=== PATIENT | male | born 1940 | race Caucasian/White ===

== ENCOUNTER → 2016-07-06 | Outpatient (CLI) | payer MEDICARE, OTHER ==
--- NOTE | 2016-07-06 17:41 | US ---
EXAMINATION TYPE: US venous doppler duplex LE LT DATE OF EXAM: 07/06/2016 5:20 PM COMPARISON: NONE CLINICAL HISTORY: I80.9 phlebitis,I82.4Z2 acute embolism. Left leg pain and swelling SIDE PERFORMED: Left VESSELS IMAGED: External Iliac Vein (EIV) Common Femoral Vein Deep Femoral Vein Greater Saphenous Vein * Femoral Vein Popliteal Vein Small Saphenous Vein * Proximal Calf Veins (* superficial vessels) TECHNOLOGIST IMPRESSION: wnl Left Leg: No evidence of DVT No popliteal fossa lesion was seen. IMPRESSION: THIS EXAMINATION IS NEGATIVE FOR DVT WITHIN THE LEFT LEG.
== END | disposition home or self-care (01) ==
LOC: RADUSMAIN 16:41
PROVIDERS: ATTEND Physical Medicine & Rehabilitation
DX: I82.4Z2 Acute embolism and thrombosis of unspecified deep veins of left distal lower extremity (principal); I80.9 Phlebitis and thrombophlebitis of unspecified site; M54.5 Low back pain; M54.2 Cervicalgia; R20.2 Paresthesia of skin

== ENCOUNTER → 2016-09-27 | Outpatient (CLI) | payer MEDICARE, OTHER ==
[2016-09-27 08:05] LABS: CH 33.9; CHCM 34.3; HCT 43.7 % (39.0-53.0); HDW 2.67; HGB 14.6 gm/dL (13.0-17.5); MCH 33.2 pg (25.0-35.0); MCHC 33.4 g/dL (31.0-37.0); MCV 99.4 fL (80.0-100.0); Mean Platelet Volume 7.4; RBC 4.39 m/uL (4.30-5.90); RDW 13.8 % (11.5-15.5); WBC 4.3 k/uL (3.8-10.6)
[2016-09-27 08:21] LABS: ALT 33 U/L (21-72); AST 22 U/L (17-59); Alkaline Phosphatase 103 U/L (38-126); Anion Gap 8 mmol/L; Blood Urea Nitrogen 29 mg/dL (9-20); Calcium 9.2 mg/dL (8.4-10.2); Carbon Dioxide 31 mmol/L (22-30); Chloride 104 mmol/L (98-107); Cholesterol 150 mg/dL (<200); Glucose 101 mg/dL (74-99); HDL Cholesterol 49 mg/dL (40-60); Non-African American GFR(MDRD) >60 (>60 ml/min/1.73 sqM); Potassium 4.1 mmol/L (3.5-5.1); Sodium 143 mmol/L (137-145); Total Bilirubin 0.9 mg/dL (0.2-1.3); Total Protein 7.7 g/dL (6.3-8.2); Triglycerides 57 mg/dL (<150)
== END | disposition home or self-care (01) ==
LOC: LABWHC1 07:22
PROVIDERS: ATTEND Internal Medicine Clinical Cardiac Electrophysiology
DX: I48.91 Unspecified atrial fibrillation (principal); I49.5 Sick sinus syndrome; E78.5 Hyperlipidemia, unspecified; R53.83 Other fatigue
CPT/HCPCS: 36415; 80053; 80061; 84443; 85027; 86618

== ENCOUNTER → 2016-11-30 | Outpatient (CLI) | payer MEDICARE, OTHER ==
--- NOTE | 2016-11-30 17:19 | US ---
EXAMINATION TYPE: US extremity nonvascular ltd LT DATE OF EXAM: 11/30/2016 COMPARISON: US 2017 CLINICAL HISTORY: L Knee Synovial Cyst M71.22; patient stated had large amount of fluid aspirated fro m lateral left knee last week Left popliteal fossa: no cyst is seen; no fluid is noted at lateral or medial left knee. IMPRESSION: NO POPLITEAL FOSSA CYST IS IDENTIFIED.
== END | disposition home or self-care (01) ==
LOC: RADUSWWP 15:01
PROVIDERS: ATTEND Family Medicine
DX: M71.22 Synovial cyst of popliteal space [Baker], left knee (principal)

== ENCOUNTER → 2017-07-14 | Outpatient (CLI) | payer MEDICARE, OTHER ==
[2017-07-14 15:13] LABS: HCT 40.3 % (39.0-53.0); HGB 13.7 gm/dL (13.0-17.5); MCH 32.8 pg (25.0-35.0); MCV 96.4 fL (80.0-100.0); Mean Platelet Volume 7.9; Platelet Count 198 k/uL (150-450); RBC 4.19 m/uL (4.30-5.90); RDW 12.8 % (11.5-15.5); WBC 5.3 k/uL (3.8-10.6)
[2017-07-14 15:23] LABS: Anion Gap 11 mmol/L; Blood Urea Nitrogen 27 mg/dL (9-20); Calcium 9.2 mg/dL (8.4-10.2); Carbon Dioxide 29 mmol/L (22-30); Chloride 102 mmol/L (98-107); Glucose 105 mg/dL (74-99); Potassium 3.8 mmol/L (3.5-5.1); Sodium 142 mmol/L (137-145)
== END | disposition home or self-care (01) ==
LOC: LABWHC1 14:51
PROVIDERS: ATTEND Internal Medicine Clinical Cardiac Electrophysiology
DX: I49.5 Sick sinus syndrome (principal); I44.7 Left bundle-branch block, unspecified; I42.0 Dilated cardiomyopathy
CPT/HCPCS: 36415; 80048; 85027

== ENCOUNTER 2017-07-25 07:28 | Day surgery (SDC) | payer MEDICARE, OTHER ==
[2017-07-17 11:04] VITALS: BMI 27.6
[~2017-07-25 07:28] MED LIST: LACTATED RINGERS 1,000 ML IV SCH; SODIUM CHLORIDE 0.9% 1,000 ML IV SCH
[2017-07-25] MEDS ORDERED: VANCOMYCIN 1,000 MG in SODIUM CHLORIDE 0.9% IRRIGATIO 1,000 ML IRRIGATION ONE (08:00)
[2017-07-25] MEDS ORDERED: VANCOMYCIN 2,000 MG in SODIUM CHLORIDE 0.9% 500 ML IVPB ONE (08:00)
[2017-07-25] MEDS ORDERED: VANCOMYCIN 1,000 MG VIAL IVPB ONE (08:21)
[2017-07-25] MEDS ORDERED: fentaNYL (PF) 50 MCG/ML 2 ML AMP ONE (11:57)
[2017-07-25] MEDS ORDERED: hydrALAZINE HCL 20 MG/ML 1 ML VIAL ONE (11:57)
[2017-07-25] MEDS ORDERED: IV FLUID CONTINUATION 1,000 ML IV ONE (11:57)
[2017-07-25] MEDS ORDERED: PROPOFOL 10 MG/ML 20 ML VIAL IV ONE (11:57)
[2017-07-25] MEDS ORDERED: MIDAZOLAM 2 MG/2 ML VIAL ONE (11:57)
[2017-07-25] MEDS ORDERED: GENTAMICIN 220 MG in SODIUM CHLORIDE 0.9% 100 ML IV STA (11:59)
[2017-07-25] MEDS ORDERED: IOHEXOL 350 MG/ML 50ML BOTTLE INJ ONE (12:20)
[2017-07-25] MEDS ORDERED: LIDOCAINE 2% INJ 20 MG/ML SQ ONE ×2 (12:40→14:00)
[2017-07-25] MEDS ORDERED: LIDOCAINE 1% INJ 10MG/ML (20 ML MDV) SQ ONE ×2 (13:50→14:01)
--- NOTE | 2017-07-25 15:29 | P.PCN ---
Preoperative Diagnosis: Diagnostic EP study Patient has a history of sick sinus syndrome and abnormal AV node function. He is symptomatic sick sinus syndrome requiring permanent pacemaker He brought in for diagnostic EP study to assess his AV node function to make a decision regarding a dual-chamber pacemaker versus a dual-chamber biventricular pacemaker After receiving IV antibiotics, vancomycin 2 g, venous sheaths were placed in the right femoral vein. Via these diagnostic catheters and the high right atrium and His bundle area and RV were placed Sinus cycle length 769 ms, AZ interval 180 ms, QRS 159 ms, QT interval 438 ms. AH 88 ms, HV 58 ms Atrial pacing and ventricular pacing was performed AV node Wenckebach block 430 ms VA Wenckebach block 310 ms No slow pathway conduction no delta waves Procedures performed in a fully awake state Plan Dual-chamber pacemaker implant with programming to minimize ventricular pacing
[2017-07-25] MEDS ORDERED: HYDROcodone/APAP 5-325MG 1 EACH TAB PO PRN (15:35)
[2017-07-25] MEDS ORDERED: ACETAMINOPHEN TAB 325 MG TAB PO PRN (15:35)
--- NOTE | 2017-07-25 16:28 | PCN ---
PROCEDURE NOTE PROCEDURE: Dual-chamber pacemaker implantation. INDICATION FOR PROCEDURE: Symptomatic sick sinus syndrome. PROCEDURE DESCRIPTION: The patient was brought to the EP lab in a fasting state. Written informed consent was obtained prior to the procedure. The patient already had a diagnostic EP study performed to assess AV node function. A dual-chamber pacemaker was recommended. The left pectoral area was prepped and draped as per protocol. Lidocaine 1% was used for local anesthesia. IV antibiotics were administered. A 4 cm incision was made parallel to the deltopectoral groove, about 1.5 cm medial to it. The incision was carried down to the level of the pectoralis muscle. A subfascial pocket was made. Hemostasis was assured. The left axillary vein was accessed at 2 points under fluoroscopy and via appropriately-sized introducer sheaths, 2 leads were positioned in the right heart. Multiple leads were used for the atrium as well as for the right ventricle. Initially the right ventricular lead was implanted and the thresholds and sensing were excellent. However, after some time the sensing decreased and there appeared to be micro dislodgement while the patient was snoring. Therefore the lead was repositioned multiple times, but because of suboptimal sensing, this was extracted and a tined, pacer lead was placed. The thresholds were excellent. The final lead in the right ventricle was a [employer] model number 1948, 58 cm length and serial number [id number]. R-waves 8.5 mV, pacing impedance 640 ohms, pacing threshold 0.3 V at 0.5 milliseconds, threshold 0.3 V at 0.5 milliseconds. Ten-volt test was negative. The atrial lead was an IsoFlex model number 1944, 46 cm length and serial number [id number]. P-waves 3.6 mitral valve, pacing impedance 349 ohms, pacing threshold 0.5 V at 0.5 milliseconds. Ten-volt test was negative. The patient had a very small atrial appendage post mitral valve surgery. Multiple leads had to be positioned, including a tined lead, straight screw-in lead, and a J- curved screw-in lead. Most times the leads were screwed in in stable position, but with snoring the lead would dislodge. Finally the J-curved screw-in lead was positioned in the right atrial appendage stump and excellent thresholds and sensing were obtained. The leads were then secured to the underlying pectoralis fascia using 2 non-absorbable sutures. Pocket was irrigated with antibiotic solution. Leads were connected to the generator ([employer] [id number], serial number [id number]). Leads and the generator were then placed in the subfascial pocket. The wound was closed in 3 layers and dressed per protocol. RESULT: 1. Successful dual-chamber pacemaker implantation. 2. Long procedure requiring exchange of multiple leads both for the atrium as well as for the right ventricle the procedure. PLAN: IV antibiotics. REJI / NIKHILN: [id number] /
[2017-07-25] MEDS ORDERED: ACETAMINOPHEN IV (For NPO) 1,000 MG in EMPTY BAG 1 BAG IVPB ONE (18:15)
[2017-07-25] MEDS: CARVEDILOL 3.125 MG TAB PO SCH (18:47)
[2017-07-25] MEDS ORDERED: VANCOMYCIN 2,000 MG in SODIUM CHLORIDE 0.9% 500 ML IVPB SCH (23:00)
[2017-07-25 23:55] VITALS: RESP 16
--- NOTE | 2017-07-26 07:16 | XR ---
EXAMINATION TYPE: XR chest 2V DATE OF EXAM: 07/26/2017 COMPARISON: 08/13/2015 TECHNIQUE: PA and lateral views submitted. HISTORY: Lead placement check FINDINGS: The lungs are clear and there is no pneumothorax, pleural effusion, or focal pneumonia. Double lead pacemaker seen the proximal lead overlying the right atrium and distal lead overlying the right vent ricle. Postsurgical changes are noted. Hypertrophic change of the spine. IMPRESSION: 1. No postprocedural complication..
--- NOTE | 2017-07-26 08:09 | P.DS ---
Providers Attending physician: Kvng Haynes Primary care physician: [facility] Course: Patient is doing well this morning. No chest discomfort dizziness lightheadedness or palpitations. His pacer site is healing well there is no hematoma. Mild tenderness and mild pain is noted. Vitals are stable afebrile 98.2F respirations normal patient looks comfortable lying in bed no orthopnea. Pulse rate in the 50s and 60s blood pressure 135/ 96. His mercury, 127/58 mmHg. 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 Tinoco in 3 months Carvedilol 3.125 mg by mouth twice daily added to the regimen for management of a mildly dilated left ventricle and left ventricular systolic function which is borderline Patient Condition at Discharge: Stable Plan - Discharge Summary Discharge Rx Participant: No New Discharge Prescriptions: New RX: Carvedilol [Coreg] 3.125 mg PO BID #90 tablet No Action Terazosin [Hytrin] 5 mg PO DAILY Naproxen Sodium [Aleve] 220 mg PO DAILY Lisinopril [Zestril] 2.5 mg PO DAILY RX: Famotidine 40 mg PO DAILY Cholecalciferol (Vitamin D3) [Vitamin D3] 2,000 unit PO DAILY Discharge Medication List Cholecalciferol (Vitamin D3) [Vitamin D3] 2,000 unit PO DAILY 07/17/17 [History] Lisinopril [Zestril] 2.5 mg PO DAILY 07/17/17 [History] Naproxen Sodium [Aleve] 220 mg PO DAILY 07/17/17 [History] RX: Famotidine 40 mg PO DAILY 07/17/17 [History] Terazosin [Hytrin] 5 mg PO DAILY 07/17/17 [History] RX: Carvedilol [Coreg] 3.125 mg PO BID #90 tablet 07/25/17 [Rx] Follow up Appointment(s)/Referral(s): Kvng Haynes MD [STAFF PHYSICIAN] - 6 Weeks Herman Pearce MD [Primary Care Provider] - 3 Weeks Activity/Diet/Wound Care/Special Instructions: PATIENT EDUCATION MATERIAL Instructions following a heart rhythm device implant. 1. Keep dressing DRY for 5 DAYS. You may cover the area with Saran or Cling Wrap, prior to a shower. 2. The dressing will be removed in the Device Clinic @ [facility]. Absorbable sutures were used to close the wound. 3. Avoid raising the [left] arm above the shoulder level. [4 week restriction] 4. Avoid arm movements, like backscratching, rubbing the head, or pulling on a cord. (4 weeks restriction) 5. Gentle range of motion movements of the shoulder, closest to the incision should be performed to avoid a frozen shoulder. (Pendulum exercises of the shoulder) 6. The opposite arm may be used freely. 7. Avoid driving for 7 days. 8. Avoid activities such as golfing, swimming, weed whacking, lifting more than 10 pounds weight, bowling, gymnastics and weight training/lifting. (6 weeks restriction) 9. Activities such as wood chopping with an axe, pull-ups in the gymnasium, power lifting, arc-welding, being close to home induction cooktops will always be a problem. 10. Arm sling is a mere reminder not to raise the arm above the head. However you do not need to keep the arm completely immobilized. Your free to move the arm and use it and for normal activities. In case of any problems, please call [facility], [place], @ [phone], Attention: Device Clinic
[2017-07-26] MEDS ORDERED: VANCOMYCIN 1,000 MG in SODIUM CHLORIDE 0.9% 250 ML IVPB STA (08:10)
[2017-07-26] MEDS: CARVEDILOL 3.125 MG TAB PO SCH (08:42)
[2017-07-26] MEDS ORDERED: FAMOTIDINE 20 MG TAB PO SCH (09:00)
[2017-07-26] MEDS ORDERED: DOXAZOSIN 4 MG TAB PO SCH (09:00)
[2017-07-26] MEDS ORDERED: LISINOPRIL 2.5 MG TAB PO SCH (09:00)
[2017-07-26 11:32] VITALS: BP 131/65; PULSE 57; TEMP 98.1
== END 2017-07-26 14:52 | disposition home or self-care (01) ==
LOC: CATHEP 07:28 → 3OBS 17:33 → CATHEP 07-26 14:52
PROVIDERS: ATTEND Internal Medicine Clinical Cardiac Electrophysiology
DX: I49.5 Sick sinus syndrome (principal); I44.0 Atrioventricular block, first degree; I44.7 Left bundle-branch block, unspecified; Z98.890 Other specified postprocedural states; Z86.79 Personal history of other diseases of the circulatory system; Z87.891 Personal history of nicotine dependence; Z79.1 Long term (current) use of non-steroidal anti-inflammatories (NSAID); Z79.899 Other long term (current) drug therapy; Z88.1 Allergy status to other antibiotic agents; Z88.0 Allergy status to penicillin
CPT/HCPCS: 93620; 33208; 71046; C1894; C1769 ×3; C1730 ×2; C1892; C1898 ×3; C1785; J2001 ×2; J3370 ×2; J1580; Q9967

== ENCOUNTER → 2017-11-08 | Outpatient (CLI) | payer MEDICARE, OTHER ==
--- NOTE | 2017-11-08 13:18 | US ---
EXAMINATION TYPE: US venous doppler duplex UE LT DATE OF EXAM: 11/08/2017 COMPARISON: NONE CLINICAL HISTORY: R22.32 SWELLING,MASS AND LUMP LT UPPER LIMB. Wasp sting 5 weeks ago and now swollen left arm, no h/o dvt SIDE PERFORMED: Left Left Arm: Internal echoes seen in upper brachial veins, axillary vein, subclavian vein, cephalic vein at the junction and starting within IJV and these vessels lack compressibility. Basilic vein in uppe r arm had rouleaux flow and was compressible but very limited flow detected. *impression given to Dr Pearce at office @ 1100 IMPRESSION: 1. Left upper extremity venous ultrasound suggestive for partial deep venous thrombosis without obstr uction as well as some superficial thrombophlebitis.
== END | disposition home or self-care (01) ==
LOC: RADUSWWP 10:19
PROVIDERS: ATTEND Family Medicine
DX: I80.8 Phlebitis and thrombophlebitis of other sites (principal)

== ENCOUNTER → 2017-11-16 | Outpatient (CLI) | payer MEDICARE, OTHER ==
--- NOTE | 2017-11-17 07:14 | US ---
EXAMINATION TYPE: US carotid duplex BILAT DATE OF EXAM: 11/16/2017 COMPARISON: US 2011 CLINICAL HISTORY: G45.9 Transient cerebral ischemic attack, unspecif; transient vision loss lower anna f left eye; on blood thinner for DVT left arm EXAM MEASUREMENTS: RIGHT: Peak Systolic Velocity (PSV) cm/sec ----- Right CCA: 68.7 ----- Right ICA: 85.5 ----- Right ECA: 104.4 ICA/CCA ratio: 1.2 RIGHT: End Diastole cm/sec ----- Right CCA: 16.7 ----- Right ICA: 29.3 ----- Right ECA: 18.9 LEFT: Peak Systolic Velocity (PSV) cm/sec ----- Left CCA: 84.1 ----- Left ICA: 82.9 ----- Left ECA: 99.3 ICA/CCA ratio: 1.0 LEFT: End Diastole cm/sec ----- Left CCA: 19.7 ----- Left ICA: 18.4 ----- Left ECA: 17.2 VERTEBRALS (direction of flow): Right Vertebral: Antegrade Left Vertebral: Antegrade Rhythm: Normal Irregular, mild intimal wall changes are seen at bilateral carotid bifurcation, but PSV is wnl bilat erally. IMPRESSION: Mild degree of grayscale atheromatous plaquing with no sonographically evident hemodynam ically significant stenosis within either visualized carotid arterial system.
== END | disposition home or self-care (01) ==
LOC: RADUSWWP 15:42
PROVIDERS: ATTEND Family Medicine
DX: I65.23 Occlusion and stenosis of bilateral carotid arteries (principal)
CPT/HCPCS: 93880

== ENCOUNTER 2018-05-31 10:17 | Day surgery (SDC) | payer MEDICARE, OTHER ==
[2018-05-30 12:42] VITALS: BMI 26.5
[~2018-05-31 10:17] MED LIST changes: -LACTATED RINGERS 1,000 ML IV SCH
[2018-05-31 10:52] VITALS: TEMP 98.2
[2018-05-31] MEDS ORDERED: PROPOFOL 10 MG/ML 20 ML VIAL IV ONE (11:20)
[2018-05-31] MEDS ORDERED: FLECAINIDE 50 MG TAB PO STA ×2 (11:29→11:51)
--- NOTE | 2018-05-31 11:33 | P.PCN ---
Preoperative Diagnosis: Diagnosis Symptomatic atrial fibrillation/atrial tachycardia Procedure Electrical cardioversion after 3 doses of flecainide 50 g twice daily Procedure details Successful electrical cardioversion for persistent atrial fibrillation/atrial tachycardia 200 J biphasic shock was successfully Final rhythm atrial paced rhythm at 50 beats a minute Plan Continue flecainide 50 mg twice daily continue ELIQUIS continue other cardiac medications and follow-up in about 6 weeks Follow-up would want to prior to that Anesthesia: MAC Condition: stable Disposition: same day
[2018-05-31 14:00] VITALS: BP 102/72; PULSE 62; RESP 16
== END 2018-05-31 13:00 | disposition home or self-care (01) ==
LOC: CATHCVL 10:17
PROVIDERS: ATTEND Internal Medicine Clinical Cardiac Electrophysiology
DX: I48.1 Persistent atrial fibrillation (principal); I47.1 Supraventricular tachycardia; I42.9 Cardiomyopathy, unspecified; I44.0 Atrioventricular block, first degree; I44.7 Left bundle-branch block, unspecified; K21.9 Gastro-esophageal reflux disease without esophagitis; Z72.0 Tobacco use; Z79.02 Long term (current) use of antithrombotics/antiplatelets; Z79.899 Other long term (current) drug therapy; Z79.1 Long term (current) use of non-steroidal anti-inflammatories (NSAID); Z88.1 Allergy status to other antibiotic agents; Z79.01 Long term (current) use of anticoagulants; Z95.0 Presence of cardiac pacemaker; Z88.0 Allergy status to penicillin; Z91.013 Allergy to seafood
CPT/HCPCS: 92960; J2704

== ENCOUNTER 2018-11-23 11:44 | Day surgery (SDC) | payer MEDICARE, OTHER ==
[2018-11-20 10:12] VITALS: BMI 26.5
[~2018-11-23 11:44] MED LIST changes: +DEXAMETHASONE SOD PHOSPHATE 10 MG/ML 1 ML VIAL IV ONE; +LACTATED RINGERS 1,000 ML IV SCH; +LIDOCAINE 1% 20 ML VIAL (10MG/ML) FOR IV START INTRADERMA PRN; +MIDAZOLAM 2 MG/2 ML VIAL IV PRN; +ONDANSETRON 4 MG/2 ML VIAL IVP ONE; +Pre Op ABX Message 1 EACH MISC MISCELLANE ONE; -SODIUM CHLORIDE 0.9% 1,000 ML IV SCH
[2018-11-23] MEDS ORDERED: ceFAZolin IN SWFI 2 GM/20 ML SYRINGE IVP STA (13:44)
[2018-11-23] MEDS ORDERED: NEOSTIGMINE 1 MG/ML 10 ML VIAL ONE (14:03)
[2018-11-23] MEDS ORDERED: SUCCINYLCHOLINE CHLORIDE 100 MG/5 ML SYR IV ONE (14:03)
[2018-11-23] MEDS ORDERED: ROCURONIUM BROMIDE 10 MG/ML 10 ML VIAL IV ONE (14:03)
[2018-11-23] MEDS ORDERED: GLYCOPYRROLATE 0.2 MG/ML 2 ML VIAL ONE (14:03)
[2018-11-23] MEDS ORDERED: PROPOFOL 10 MG/ML 20 ML VIAL IV ONE (14:03)
[2018-11-23] MEDS ORDERED: MIDAZOLAM 2 MG/2 ML VIAL ONE (14:03)
[2018-11-23] MEDS ORDERED: LIDOCAINE 1% INJ 10MG/ML (20 ML MDV) ONE (14:03)
[2018-11-23] MEDS ORDERED: ROPIVACAINE 5 MG/ML 30 ML VIAL ONE (14:03)
[2018-11-23] MEDS ORDERED: DEXAMETHASONE SOD PHOSPHATE 4 MG/ML 1 ML VIAL ONE (14:03)
[2018-11-23] MEDS ORDERED: fentaNYL (PF) 50 MCG/ML 2 ML AMP ONE (14:03)
[2018-11-23] MEDS ORDERED: LACTATED RINGERS 1,000 ML IV ONE (15:31)
[2018-11-23 16:05] VITALS: TEMP 97.8
[2018-11-23 16:35] VITALS: RESP 16
[2018-11-23 17:04] VITALS: BP 151/66; PULSE 52
--- NOTE | 2018-11-24 10:38 | P.OP ---
Date of Procedure: 11/23/18 Procedure(s) Performed: PREOPERATIVE DIAGNOSES: 1. Right shoulder large retracted rotator cuff tear. 2. Chronic impingement syndrome. 3. Acromioclavicular osteoarthritis. 4. Superior labral degenerative tear 5. Long head biceps tendinopathy. POSTOPERATIVE DIAGNOSES: 1. Right shoulder large retracted rotator cuff tear (supraspinatus and infraspinatus, 4 cm, retracted past glenoid with poor quality tissue and poor posterior leaflet mobility). 2. Chronic impingement syndrome with cuff arthropathy 3. Acromioclavicular osteoarthritis. 4. Labral degenerative tear. 5. Long head biceps complete rupture 5. Moderate to severe adhesive capsulitis PROCEDURES PERFORMED: 1. Right shoulder arthroscopy with rotator cuff repair (margin convergene partial repair) 2. Arthroscopic partial distal clavicle excision 3. Arthroscopic lysis of adhesions with capsular release and manipulation under anesthesia 4. Arthroscopic subacromial decompression 5. Arthroscopic debridement superior labral tear ANESTHESIA: General. ESTIMATED BLOOD LOSS: Less than 25 mL TOURNIQUET: None CHANNEL PROCESS PLANT OPERATOR: Mattie Irvin PA-C (assistance with: Positioning, retraction, camera operation, repair, closure, dressing) COMPLICATIONS: None. DISPOSITION: To postanesthesia care unit INDICATIONS: Mr. Domingo is a 78 year old male with a history of large rotator cuff tear. MRI was suspicious for a tear with retraction and cuff arthropathy, and the patient does not wish to have a reverse total shoulder replacement, which I feel would be the most definitive procedure for him however would involve lifestyle restrictions which he is not comfortable with. He understands the difficulties associated with repair of a retracted rotator cuff tear and understands that there is the possibility of being unable to fully repair the tear. I have examined the patient in the office and proposed rotator cuff repair via an arthroscopic or mini-open approach, as well as other procedures to optimize the shoulder and outcome, such as decompression/smoothing of spurs and debridement of loose or degenerated tissue. I have explained the risks of this surgery as being inclusive of, but not limited to: bleeding, infection, scarring, discomfort, blood vessel and/or nerve damage, need for further surgery, stiffness, persistence or worsening of problems, , and other risks. The consent form has been completed and signed. PROCEDURE: Appropriate consent was obtained from the patient. The patient was taken to the operating room and placed in the supine position. General anesthesia was initiated and after confirmation of adequate anesthesia, the patients right shoulder was examined. Initial range of motion showed flexion to 140 abduction to 140, external rotation to 30 and internal rotation to 30. Using Codman's paradox maneuver, the right shoulder was gently stretched and fi nal range of motion after the stretch was for flexion to 170, abduction to 170, external rotation to 75, and internal rotation to 60 with the arm at 90 abduction. The shoulder was stable. Next, the patient was rotated into the lateral decubitus position and stabilized to the table with a vallecillo bag and padded straps. Care was taken to make sure that all pressure points were adequately padded. Bear-hugger was used along with bilateral leg sequential compression devices. Prepping and draping was completed in the usual aseptic fashion using ChloraPrep. The patient received intravenous antibiotics prior to incision. The shoulder was suspended from traction with 10 lbs. of weight in a position of 45 degrees abduction. Landmarks were outlined with a skin marking pen. A spinal needle was inserted into the glenohumeral joint and fluid was administered to distend the joint. A posterior portal was created using an 11 blade and the arthroscopic canula, over a dull trocar, was carefully inserted into the joint. Arthroscopy then commenced. An anterior portal was inserted in the rotator interval area using inside-out technique. Biceps tendon showed complete rupture. Shaver was used to move the degenerated portion of the biceps within the joint. Severe labral degeneration was noted throughout the periphery of the glenoid. Moderate cartilage loss was noted throughout both the glenoid and humeral head sides. Large rotator cuff defect was noted from the subscapularis all the way to the extent of the infraspinatus. Teres minor attachment appeared to be relatively intact. The anterior undersurface of the acromion could clearly be seen through the rotator cuff defect. Minor debris and several small loose bodies were noted in the joint, which were removed using the shaver. Labrum showed circumferential degenerative changes without significant instability. Superior labrum was well attached. Negative peel back sign. Loose fibers of labrum in all areas were debrided away back to stable labrum. Synovitis was noted superior to the superior labrum and within the rotator interval. This was debrided and removed where the capsule appeared inflamed, using an arthroscopic shaver. Attention was then directed to the subacromial space. The camera and instruments were redirected into the subacromial space and bursoscopy was performed. The patients bursa was inflamed and thickened, indicating chronic bursitis. There also appear to be significant degenerative adhesions present within the lateral gutter anterior gutter and posterior gutter. These adhesions were lysed using a shaver and radiofrequency and attention was paid to meticulous hemostasis with the ArthroCare device. A lateral portal was created using outside-in technique. The rotator cuff tear was noted to be a broad U- shaped tear, with retraction past the level of the glenoid, with appeared to be a very deficient anterior and posterior leaflet. The posterior leaflet was poorly mobile, and therefore using a combination of angled elevator, shaver, and ArthroCare device, the adhesions between the inferior and superior surfaces of the posterior leaflet/conjoined tendon were released; however, this did not improve mobility very much. The anterior leaflet was composed of very deficient tissue, without a robust appearance. The posterior leaflet was in slightly better condition but still deficient. The loose fibers of the tear were debrided back to stable tissue and the defect in the tendon was repaired partially, see below. The undersurface of the acromion had frictional changes consistent with severe and chronic impingement syndrome. The underside of the acromion anteriorly was cleared of soft tissue using an arthroscopic radiofrequency ablator. Care was taken while using the ablator not to exceed 40 degrees Centigrade within the bursa. In order to avoid the possibility of anterior escape, the CA ligament was left intact and the undersurface of the acromion was smoothed using a flat jim. Minimal thickness of material was removed. The rotator cuff tear was then repaired as follows. Preparation of the supraspinatus and infraspinatus footprint was performed using hand rasps , jim, and shaver. This created a bleeding surface without significant decortication. 3 margin convergence sutures using #2 FiberWire were deployed into the medial portion of the rotator cuff and were tied down using alternating half hitches arthroscopically. This significantly reduced the volume of the tear. Next, the posterior leaflet was attempted to be repaired. The substance of the tendon was too deficient to hold a stitch. Addtionally, there was no significant remaining posterior leaflet mobilility without causing undue tension in the repair. Therefore, no anchor was needed and the repair was left as a partial repair using the margin convergence technique described above. Subsequently, 4-0 Monocryl was used to close the portal holes. Steri-strips were applied as well as sterile dressing. The shoulder was then placed into a sling and the patient was transferred to recovery room in stable condition. Sponge and needle counts were correct.
--- NOTE | 2018-11-26 11:51 | P.ANPRN ---
Procedure Note - Anesthesia - Nerve Block Performed Right Interscalene Single Time Out Performed: Yes Date of Procedure: 11/23/18 Procedure Start Time: 13:00 Procedure Stop Time: 13:04 Location of Patient Procedure: PreOp Indication: Acute Post-Operative Pain, Requested by physician Sedation Type: Sedate with meaningful contact maintained Preparation: Sterile Prep Position: Supine Needle Types: Pajunk Needle Gauge: 21 Technique: Ultrasound (Ropivacaine 0.5% 30 mL plus dexamethasone 4 Mg) Blood Aspirated: No Pain Paresthesia on Injection Noted: No Resistance on Injection: Normal Events: Uneventful and Well Tolerated
== END 2018-11-23 17:31 | disposition home or self-care (01) ==
LOC: OR 11:44
PROVIDERS: ATTEND Orthopaedic Surgery
DX: M75.101 Unspecified rotator cuff tear or rupture of right shoulder, not specified as traumatic (principal); M25.811 Other specified joint disorders, right shoulder; M19.011 Primary osteoarthritis, right shoulder; M24.811 Other specific joint derangements of right shoulder, not elsewhere classified; M75.01 Adhesive capsulitis of right shoulder; S46.111A Strain of muscle, fascia and tendon of long head of biceps, right arm, initial encounter; X58.XXXA Exposure to other specified factors, initial encounter; M65.811 Other synovitis and tenosynovitis, right shoulder; I10 Essential (primary) hypertension; I48.91 Unspecified atrial fibrillation; E78.5 Hyperlipidemia, unspecified; H91.90 Unspecified hearing loss, unspecified ear; Z87.891 Personal history of nicotine dependence; K21.9 Gastro-esophageal reflux disease without esophagitis; Z95.1 Presence of aortocoronary bypass graft; Z95.0 Presence of cardiac pacemaker; Z90.49 Acquired absence of other specified parts of digestive tract; Z79.01 Long term (current) use of anticoagulants; Z79.899 Other long term (current) drug therapy; Z88.1 Allergy status to other antibiotic agents; Z88.0 Allergy status to penicillin
CPT/HCPCS: 29827; 29826; 29824; 29823; 64415; C1894; J2250; J1100 ×2; J2710; J2405; J2001; J3010; J2795; J0330; J2704; J0690

== ENCOUNTER 2018-11-25 09:26 | Emergency (ER) | payer MEDICARE, OTHER ==
--- NOTE | 2018-11-25 10:47 | ED ---
Male Urogenital HPI - General Source: patient, family, RN notes reviewed Mode of arrival: wheelchair Limitations: no limitations <Omer Castillo - Last Filed: 11/25/18 11:46> <Km Bourne - Last Filed: 11/25/18 12:11> - General Chief complaint: Urogenital Stated complaint: URINE PROBLEM Time Seen by Provider: 11/25/18 09:47 - History of Present Illness Initial comments: 78-year-old male presented emergency Department with chief complaint of painful urination, lower abdominal pain and urinary leakage. Patient states this started after surgery on Monday. Patient states that he constantly has to go but only small amounts her out. Patient states she is at the point where she is constantly leaking. He states he feels like his prostate is swollen. He does have an enlarged prostate. Patient had no problems like this in the past. Denies fevers or chills denies any nausea vomiting. (Omer Castillo) - Related Data Home Medications Medication Instructions Recorded Confirmed Cholecalciferol (Vitamin D3) 2,000 unit PO DAILY 07/17/17 11/25/18 [Vitamin D3] Famotidine 40 mg PO QAM 07/17/17 11/25/18 Lisinopril [Zestril] 2.5 mg PO QAM 07/17/17 11/25/18 Naproxen Sodium [Aleve] 220 mg PO Q2D 07/17/17 11/25/18 Terazosin [Hytrin] 5 mg PO DAILY 07/17/17 11/25/18 Apixaban [Eliquis] 5 mg PO BID 05/30/18 11/25/18 Aspirin 81 mg PO DAILY 05/30/18 11/25/18 Atorvastatin [Lipitor] 20 mg PO Q2D 05/30/18 11/25/18 Carvedilol [Coreg] 6.25 mg PO BID 05/30/18 11/25/18 Flecainide [Tambocor] 25 mg PO Q12HR 05/31/18 11/25/18 Metoprolol Succinate (ER) [Toprol 25 mg PO QAM 11/20/18 11/25/18 Xl] Previous Rx's Medication Instructions Recorded HYDROcodone/APAP 5-325MG [[place] 1 - 2 each PO Q4-6H PRN #50 tab 11/23/18 5-325] Sennosides-Docusate Sodium 1 tab PO BID #60 tablet 11/23/18 [Senokot-S] Allergies Allergy/AdvReac Type Severity Reaction Status Date / Time clarithromycin [From Biaxin] Allergy Anaphylaxis Verified 11/25/18 09:44 clindamycin Allergy Anaphylaxis Verified 11/25/18 09:44 Penicillins Allergy Anaphylaxis Verified 11/25/18 09:44 shellfish derived [Crab] Allergy Anaphylaxis Verified 11/25/18 09:44 Review of Systems ROS Other: All systems not noted in ROS Statement are negative. <Omer Castillo - Last Filed: 11/25/18 11:46> ROS Other: All systems not noted in ROS Statement are negative. <Km Bourne - Last Filed: 11/25/18 12:11> ROS Statement: Those systems with pertinent positive or pertinent negative responses have been documented in the HPI. Past Medical History Past Medical History: Atrial Fibrillation, GERD/Reflux, Hypertension, Osteoarthritis (OA) Additional Past Medical History / Comment(s): 07-29-17 blood clot upper extremity and neck History of Any Multi-Drug Resistant Organisms: None Reported Past Surgical History: Cardiac Ablation, Cholecystectomy, Heart Catheterization, Hernia Repair, Pacemaker Additional Past Surgical History / Comment(s): lt shoulder surg, mitral valve repair in 2012. Past Anesthesia/Blood Transfusion Reactions: No Reported Reaction Additional Past Anesthesia/Blood Transfusion Reaction / Comment(s): no hx blood transfusion Type of Cardiac Device: Permanent Pacemaker Device Placement Date:: 07-25-17 [facility] Past Psychological History: No Psychological Hx Reported Smoking Status: Former smoker Past Alcohol Use History: Daily Past Drug Use History: None Reported - Past Family History Mother Family Medical History: Cancer Father Family Medical History: Cancer <Omer Castillo - Last Filed: 11/25/18 11:46> General Exam General appearance: alert, in no apparent distress Head exam: Present: atraumatic, normocephalic, normal inspection Respiratory exam: Present: normal lung sounds bilaterally. Absent: respiratory distress, wheezes, rales, rhonchi, stridor Cardiovascular Exam: Present: regular rate, normal rhythm, normal heart sounds. Absent: systolic murmur, diastolic murmur, rubs, gallop, clicks GI/Abdominal exam: Present: soft, distended, tenderness, normal bowel sounds. Absent: guarding, rebound, rigid Back exam: Absent: CVA tenderness (R), CVA tenderness (L) Neurological exam: Present: alert, oriented X3, CN II-XII intact Skin exam: Present: warm, dry, intact, normal color. Absent: rash <Omer Castillo - Last Filed: 11/25/18 11:46> Course <Km Bourne - Last Filed: 11/25/18 12:11> Vital Signs 11/25/18 09:40 Temperature 99.3 F Pulse Rate 82 Respiratory 24 Rate Blood Pressure 189/82 O2 Sat by Pulse 99 Oximetry - Reevaluation(s) Reevaluation #1: 11/25/18 12:11 PA supervision: I personally did evaluate this case including the complete workup and discussed with the PA. Patient will be discharged I do agree with the assessment and plan. (Km Bourne) Medical Decision Making <Omer Castillo - Last Filed: 11/25/18 11:46> - Medical Decision Making 78-year-old male presented for urinary retention. Patient fully place all symptoms are alleviate this time. Luciano catheter will be kept in place. Patient's urinalysis is clear of any signs of infection. (Omer Castillo) - Lab Data Lab Results 11/25/18 Range/Units 11:10 Urine Color Light Yellow Urine Appearance Clear (Clear) Urine pH 7.0 (5.0-8.0) Ur Specific [place] 1.011 (1.001-1.035) Urine Protein Negative (Negative) Urine Glucose (UA) Negative (Negative) Urine Ketones Negative (Negative) Urine Blood Negative (Negative) Urine Nitrite Negative (Negative) Urine Bilirubin Negative (Negative) Urine Urobilinogen <2.0 (<2.0) mg/dL Ur Leukocyte Esterase Negative (Negative) Disposition Is patient prescribed a controlled substance at d/c from ED?: No Time of Disposition: 11:47 <Omer Castillo - Last Filed: 11/25/18 11:46> <Km Bourne - Last Filed: 11/25/18 12:11> Clinical Impression: Urinary retention Disposition: HOME SELF-CARE Condition: Stable Instructions (If sedation given, give patient instructions): Urinary Retention in Men (ED) Additional Instructions: Please return to the Emergency Department if symptoms worsen or any other concerns. Referrals: Herman Pearce MD [Primary Care Provider] - 1-2 days Bertrand Combs MD [STAFF PHYSICIAN] - 1-2 days
[2018-11-25 10:48] LABS: Appearance,Urine Clear (Clear); Bilirubin,Urine Negative (Negative); Blood,Urine Negative (Negative); Color,Urine Light Yellow; Glucose,Urine (UA) Negative (Negative); Ketones,Urine Negative (Negative); Leukocyte Esterase,Urine Negative (Negative); Nitrite,Urine Negative (Negative); Protein,Urine Negative (Negative); Specific Gravity,Urine 1.011 (1.001-1.035); Urobilinogen,Urine <2.0 mg/dL (<2.0)
[2018-11-25 12:17] VITALS: BP 166/85; PULSE 61; RESP 18; TEMP 100.7
== END 2018-11-25 12:05 | disposition home or self-care (01) ==
LOC: EC 09:26
DX: R33.9 Retention of urine, unspecified (principal); R30.9 Painful micturition, unspecified; R10.30 Lower abdominal pain, unspecified; I48.91 Unspecified atrial fibrillation; K21.9 Gastro-esophageal reflux disease without esophagitis; I10 Essential (primary) hypertension; M19.90 Unspecified osteoarthritis, unspecified site; Z87.891 Personal history of nicotine dependence; Z79.01 Long term (current) use of anticoagulants; Z79.1 Long term (current) use of non-steroidal anti-inflammatories (NSAID); Z79.82 Long term (current) use of aspirin; Z79.899 Other long term (current) drug therapy; Z88.0 Allergy status to penicillin; Z88.1 Allergy status to other antibiotic agents; Z91.013 Allergy to seafood; Z95.0 Presence of cardiac pacemaker; Z95.818 Presence of other cardiac implants and grafts; Z90.49 Acquired absence of other specified parts of digestive tract
CPT/HCPCS: 51702; 51798; 81003; 99284

== ENCOUNTER 2018-11-29 03:51 | Emergency (ER) | payer MEDICARE, OTHER ==
[2018-11-29 04:33] LABS: Appearance,Urine Clear (Clear); Bilirubin,Urine Negative (Negative); Blood,Urine Moderate (Negative); Color,Urine Yellow; Glucose,Urine (UA) Negative (Negative); Ketones,Urine Negative (Negative); Leukocyte Esterase,Urine Negative (Negative); Mucus,Urine Rare /hpf; Nitrite,Urine Negative (Negative); PH, Urine 6.5 (5.0-8.0); Protein,Urine Trace (Negative); RBC,Urine 80 /hpf (0-5); Squamous Epithelial Cell,Urine <1 /hpf (0-4); Urobilinogen,Urine <2.0 mg/dL (<2.0); WBC,Urine 3 /hpf (0-5)
--- NOTE | 2018-11-29 04:58 | ED ---
General Adult HPI - General Chief complaint: Urogenital Stated complaint: Male Time Seen by Provider: 11/29/18 03:59 Source: patient, family Mode of arrival: ambulatory Limitations: no limitations - History of Present Illness Initial comments: Dictation was produced using [employer] dictation software. please excuse any grammatical, word or spelling errors. Chief Complaint: 78-year-old male past history of enlarged prostate presents with urinary retention. History of Present Illness: he is a 78-year-old male patient reports that he had his Luciano catheter removed earlier today by his primary care physician. Past medical history of enlarged prostate. Patient states that he had urinary retention after shoulder surgery done last week. Reports that he had difficulty urinating after the surgery. On Monday taken to the emergency department had Luciano catheter placed. Luciano catheter remain in place for approximately 2-3 days. Today he went to his primary care physician's office and had the Luciano catheter removed. Since having the Luciano catheter removed patient has been having difficulty urinating. Patient complains of some mild suprapubic discomfort. The ROS documented in this emergency department record has been reviewed and confirmed by me. Those systems with pertinent positive or negative responses have been documented in the HPI. All other systems are other negative and/or noncontributory. PHYSICAL EXAM: General Impression: Alert and oriented x3, not in acute distress HEENT: Normocephalic atraumatic, extra-ocular movements intact, pupils equal and reactive to light bilaterally, mucous membranes moist. Cardiovascular: Heart regular rate and rhythm, S1&S2 audible, no murmurs, rubs or gallops Chest: Lungs clear to auscultation bilaterally, no rhonchi, no wheeze, no rales Abdomen: Mild tenderness in suprapubic area, palpable bladder Musculoskeletal: Pulses present and equal in all extremities, no peripheral edema Motor: no focal deficits noted Neurological: CN II-XII grossly intact, no focal motor or sensory deficits noted Skin: Intact with no visualized rashes Psych: Normal affect and mood ED course: 78-year-old male presents with urinary retention. He has past medical history of enlarged prostate. Arrival are within acceptable limits. Bladder scan was performed with greater than 400 mL of urine. Luciano catheter was placed by nursing staff with output of 1200 mL. Patient reports immediate relief. Urine sent for urinalysis and culture. Patient has outpatient referral to urologist. He is advised to follow-up with urologist for outpatient management of urinary retention and Luciano catheter. Return parameters discussed. Patient clear for discharge. - Related Data Home Medications Medication Instructions Recorded Confirmed Cholecalciferol (Vitamin D3) 2,000 unit PO DAILY 07/17/17 11/25/18 [Vitamin D3] Famotidine 40 mg PO QAM 07/17/17 11/25/18 Lisinopril [Zestril] 2.5 mg PO QAM 07/17/17 11/25/18 Naproxen Sodium [Aleve] 220 mg PO Q2D 07/17/17 11/25/18 Terazosin [Hytrin] 5 mg PO DAILY 07/17/17 11/25/18 Apixaban [Eliquis] 5 mg PO BID 05/30/18 11/25/18 Aspirin 81 mg PO DAILY 05/30/18 11/25/18 Atorvastatin [Lipitor] 20 mg PO Q2D 05/30/18 11/25/18 Carvedilol [Coreg] 6.25 mg PO BID 05/30/18 11/25/18 Flecainide [Tambocor] 25 mg PO Q12HR 05/31/18 11/25/18 Metoprolol Succinate (ER) [Toprol 25 mg PO QAM 11/20/18 11/25/18 Xl] Previous Rx's Medication Instructions Recorded HYDROcodone/APAP 5-325MG [[place] 1 - 2 each PO Q4-6H PRN #50 tab 11/23/18 5-325] Sennosides-Docusate Sodium 1 tab PO BID #60 tablet 11/23/18 [Senokot-S] Allergies Allergy/AdvReac Type Severity Reaction Status Date / Time clarithromycin [From Biaxin] Allergy Anaphylaxis Verified 11/29/18 03:55 clindamycin Allergy Anaphylaxis Verified 11/29/18 03:55 Penicillins Allergy Anaphylaxis Verified 11/29/18 03:55 shellfish derived [Crab] Allergy Anaphylaxis Verified 11/29/18 03:55 Review of Systems ROS Statement: Those systems with pertinent positive or pertinent negative responses have been documented in the HPI. ROS Other: All systems not noted in ROS Statement are negative. Past Medical History Past Medical History: Atrial Fibrillation, GERD/Reflux, Hypertension, Osteoarthritis (OA) Additional Past Medical History / Comment(s): 07-29-17 blood clot upper extremity and neck History of Any Multi-Drug Resistant Organisms: None Reported Past Surgical History: Cardiac Ablation, Cholecystectomy, Heart Catheterization, Hernia Repair, Pacemaker Additional Past Surgical History / Comment(s): lt shoulder surg, mitral valve repair in 2012. Past Anesthesia/Blood Transfusion Reactions: No Reported Reaction Additional Past Anesthesia/Blood Transfusion Reaction / Comment(s): no hx blood transfusion Type of Cardiac Device: Permanent Pacemaker Device Placement Date:: 07-25-17 [facility] Past Psychological History: No Psychological Hx Reported Smoking Status: Former smoker Past Alcohol Use History: Daily Past Drug Use History: None Reported - Past Family History Mother Family Medical History: Cancer Father Family Medical History: Cancer General Exam Limitations: no limitations Course Vital Signs 11/29/18 03:51 Temperature 98.1 F Pulse Rate 86 Respiratory 20 Rate Blood Pressure 182/110 O2 Sat by Pulse 96 Oximetry Medical Decision Making - Lab Data Lab Results 11/29/18 Range/Units 04:19 Urine Color Yellow Urine Appearance Clear (Clear) Urine pH 6.5 (5.0-8.0) Ur Specific [place] 1.010 (1.001-1.035) Urine Protein Trace H (Negative) Urine Glucose (UA) Negative (Negative) Urine Ketones Negative (Negative) Urine Blood Moderate H (Negative) Urine Nitrite Negative (Negative) Urine Bilirubin Negative (Negative) Urine Urobilinogen <2.0 (<2.0) mg/dL Ur Leukocyte Esterase Negative (Negative) Urine RBC 80 H (0-5) /hpf Urine WBC 3 (0-5) /hpf Ur Squamous Epith Cells <1 (0-4) /hpf Urine Mucus Rare H (None) /hpf Disposition Clinical Impression: Urinary retention Disposition: HOME SELF-CARE Condition: Good Instructions (If sedation given, give patient instructions): Urinary Retention in Men (ED) Is patient prescribed a controlled substance at d/c from ED?: No Referrals: Bertrand Combs MD [STAFF PHYSICIAN] - 1-2 days Time of Disposition: 04:57
[2018-11-29 05:27] VITALS: BP 164/89; PULSE 88; RESP 18; TEMP 98.2
== END 2018-11-29 05:28 | disposition home or self-care (01) ==
LOC: EC 03:51
DX: R33.9 Retention of urine, unspecified (principal); I48.91 Unspecified atrial fibrillation; K21.9 Gastro-esophageal reflux disease without esophagitis; I10 Essential (primary) hypertension; M19.90 Unspecified osteoarthritis, unspecified site; N40.0 Benign prostatic hyperplasia without lower urinary tract symptoms; Z87.891 Personal history of nicotine dependence; Z79.82 Long term (current) use of aspirin; Z79.01 Long term (current) use of anticoagulants; Z79.899 Other long term (current) drug therapy; Z79.1 Long term (current) use of non-steroidal anti-inflammatories (NSAID); Z88.0 Allergy status to penicillin; Z88.1 Allergy status to other antibiotic agents; Z91.013 Allergy to seafood; Z90.49 Acquired absence of other specified parts of digestive tract; Z95.0 Presence of cardiac pacemaker; Z95.818 Presence of other cardiac implants and grafts; Z98.890 Other specified postprocedural states
CPT/HCPCS: 51702; 51798; 81001; 87086; 99284

== ENCOUNTER 2018-12-13 08:23 | Emergency (ER) | payer MEDICARE, OTHER ==
[2018-12-13 08:31] VITALS: BP 194/98; PULSE 72; RESP 16; TEMP 97.9
--- NOTE | 2018-12-13 08:58 | ED ---
General Adult HPI - General Chief complaint: Urogenital Stated complaint: urine retention Time Seen by Provider: 12/13/18 08:25 Source: patient, RN notes reviewed Mode of arrival: ambulatory Limitations: no limitations - History of Present Illness Initial comments: This is a 78-year-old male who presents emergency Department with urinary retention. Patient states that she had shoulder surgery about 2 weeks ago he has had 2 previous Luciano catheters placed. Patient states he had it taken out yesterday and overnight he filled up again and was unable to urinate and now is in quite a bit of pain in the suprapubic region. Patient denies any fever chills. Patient denies any blood in the urine. Patient states he is occasionally dripping a little bit of urine. Patient denies any nausea vomiting diarrhea. Patient denies any other symptoms at this time. - Related Data Home Medications Medication Instructions Recorded Confirmed Cholecalciferol (Vitamin D3) 2,000 unit PO DAILY 07/17/17 12/13/18 [Vitamin D3] Famotidine 40 mg PO QAM 07/17/17 12/13/18 Lisinopril [Zestril] 2.5 mg PO QAM 07/17/17 12/13/18 Naproxen Sodium [Aleve] 220 mg PO Q48H 07/17/17 12/13/18 Terazosin [Hytrin] 5 mg PO HS 07/17/17 12/13/18 Apixaban [Eliquis] 5 mg PO BID 05/30/18 12/13/18 Aspirin 81 mg PO DAILY 05/30/18 12/13/18 Atorvastatin [Lipitor] 20 mg PO Q48H 05/30/18 12/13/18 Flecainide [Tambocor] 25 mg PO Q12HR 05/31/18 12/13/18 Metoprolol Succinate (ER) [Toprol 25 mg PO QAM 11/20/18 12/13/18 Xl] Carvedilol [Coreg] 6.25 mg PO BID 12/13/18 12/13/18 Previous Rx's Medication Instructions Recorded Sennosides-Docusate Sodium 1 tab PO BID #60 tablet 11/23/18 [Senokot-S] Allergies Allergy/AdvReac Type Severity Reaction Status Date / Time clarithromycin [From Biaxin] Allergy Anaphylaxis Verified 12/13/18 08:38 clindamycin Allergy Anaphylaxis Verified 12/13/18 08:38 Penicillins Allergy Anaphylaxis Verified 12/13/18 08:38 shellfish derived [Crab] Allergy Anaphylaxis Verified 12/13/18 08:38 Review of Systems ROS Statement: Those systems with pertinent positive or pertinent negative responses have been documented in the HPI. ROS Other: All systems not noted in ROS Statement are negative. Past Medical History Past Medical History: Atrial Fibrillation, GERD/Reflux, Hypertension, Osteoarthritis (OA) Additional Past Medical History / Comment(s): 07-29-17 blood clot upper extremity and neck History of Any Multi-Drug Resistant Organisms: None Reported Past Surgical History: Cardiac Ablation, Cholecystectomy, Heart Catheterization, Hernia Repair, Pacemaker Additional Past Surgical History / Comment(s): lt shoulder surg, mitral valve repair in 2012. Past Anesthesia/Blood Transfusion Reactions: No Reported Reaction Additional Past Anesthesia/Blood Transfusion Reaction / Comment(s): no hx blood transfusion Type of Cardiac Device: Permanent Pacemaker Device Placement Date:: 07-25-17 [facility] Past Psychological History: No Psychological Hx Reported Smoking Status: Former smoker Past Alcohol Use History: Daily Past Drug Use History: None Reported - Past Family History Mother Family Medical History: Cancer Father Family Medical History: Cancer General Exam - General Exam Comments Initial Comments: GENERAL: Patient is well-developed and well-nourished. Patient is nontoxic and well- hydrated and is in mild distress. EYES: The sclera were anicteric and conjunctiva were pink and moist. Extraocular movements were intact and pupils were equal round and reactive to light. Eyelids were unremarkable. PULMONARY: Unlabored respirations. Good breath sounds bilaterally. CARDIOVASCULAR: There is a regular rate and rhythm without any murmurs gallops or rubs. ABDOMEN: Patient has some lower abdominal distention and suprapubic tenderness. SKIN: Skin is clear with no lesions or rashes and otherwise unremarkable. NEUROLOGIC: Patient is alert and oriented x3. Cranial nerves II through XII are grossly intact. Motor and sensory are also intact. Normal speech, volume and content. Symmetrical smile. MUSCULOSKELETAL: Normal extremities with adequate strength and full range of motion. LYMPHATICS: No significant lymphadenopathy is noted PSYCHIATRIC: Normal psychiatric evaluation. Limitations: no limitations Course Vital Signs 12/13/18 08:28 Temperature 97.9 F Pulse Rate 72 Respiratory 16 Rate Blood Pressure 194/98 O2 Sat by Pulse 97 Oximetry Medical Decision Making - Medical Decision Making Patient had a Luciano catheter placed with a leg bag and his symptoms completely resolved. - Lab Data Lab Results 12/13/18 Range/Units 08:54 Urine Color Yellow Urine Appearance Clear (Clear) Urine pH 6.5 (5.0-8.0) Ur Specific [place] 1.009 (1.001-1.035) Urine Protein Negative (Negative) Urine Glucose (UA) Negative (Negative) Urine Ketones Negative (Negative) Urine Blood Moderate H (Negative) Urine Nitrite Negative (Negative) Urine Bilirubin Negative (Negative) Urine Urobilinogen <2.0 (<2.0) mg/dL Ur Leukocyte Esterase Negative (Negative) Urine RBC 67 H (0-5) /hpf Urine WBC 3 (0-5) /hpf Urine Mucus Rare H (None) /hpf Disposition Clinical Impression: Urinary retention Disposition: HOME SELF-CARE Condition: Good Instructions (If sedation given, give patient instructions): Urinary Retention in Men (ED) Is patient prescribed a controlled substance at d/c from ED?: No Referrals: Wicho Robertson MD [STAFF PHYSICIAN] - 1-2 days Time of Disposition: 10:32
[2018-12-13 09:40] LABS: Appearance,Urine Clear (Clear); Bilirubin,Urine Negative (Negative); Blood,Urine Moderate (Negative); Color,Urine Yellow; Glucose,Urine (UA) Negative (Negative); Ketones,Urine Negative (Negative); Leukocyte Esterase,Urine Negative (Negative); Mucus,Urine Rare /hpf; Nitrite,Urine Negative (Negative); PH, Urine 6.5 (5.0-8.0); Protein,Urine Negative (Negative); RBC,Urine 67 /hpf (0-5); Specific Gravity,Urine 1.009 (1.001-1.035); Urobilinogen,Urine <2.0 mg/dL (<2.0); WBC,Urine 3 /hpf (0-5)
== END 2018-12-13 10:47 | disposition home or self-care (01) ==
LOC: EC 08:23
DX: R33.9 Retention of urine, unspecified (principal); R14.0 Abdominal distension (gaseous); R10.30 Lower abdominal pain, unspecified; I48.91 Unspecified atrial fibrillation; K21.9 Gastro-esophageal reflux disease without esophagitis; I10 Essential (primary) hypertension; M19.90 Unspecified osteoarthritis, unspecified site; Z87.891 Personal history of nicotine dependence; Z88.0 Allergy status to penicillin; Z88.1 Allergy status to other antibiotic agents; Z91.013 Allergy to seafood; Z79.01 Long term (current) use of anticoagulants; Z79.1 Long term (current) use of non-steroidal anti-inflammatories (NSAID); Z79.82 Long term (current) use of aspirin; Z79.899 Other long term (current) drug therapy; Z95.0 Presence of cardiac pacemaker; Z90.49 Acquired absence of other specified parts of digestive tract; Z98.890 Other specified postprocedural states
CPT/HCPCS: 51702; 81001; 99283

== ENCOUNTER 2020-10-21 12:13 | Observation (INO) | payer MEDICARE, OTHER ==
--- NOTE | 2020-10-21 12:34 | ED ---
General Adult HPI - General Chief complaint: Shortness of Breath Stated complaint: SOB Time Seen by Provider: 10/21/20 12:15 Source: patient, EMS, RN notes reviewed, old records reviewed Mode of arrival: EMS Limitations: no limitations - History of Present Illness Initial comments: This is an 80-year-old male presents emergency Department presents emergency department today complaining that he has shortness of breath ever since Monday. Patient states she has a history of high blood pressure atrial fibrillation and blood clots. Patient states she's on Xarelto. Patient also was noticed some blood in his urine. Patient states he had no recent fever chills or cough. Patient states she's had no chest pain or abdominal pain. Patient states he is just short of breath after minimal exertion. Patient states she has a little bit of swelling in both legs which is not that, but has occurred in the past. Patient denies any lightheadedness or dizziness. Patient denies any black or bloody stools. Patient denies headache patient denies numbness weakness. Patient denies any palpitations. - Related Data Home Medications Medication Instructions Recorded Confirmed Cholecalciferol (Vitamin D3) 2,000 unit PO DAILY 07/17/17 12/13/18 [Vitamin D3] Famotidine 40 mg PO QAM 07/17/17 12/13/18 Naproxen Sodium [Aleve] 220 mg PO Q48H 07/17/17 12/13/18 Terazosin [Hytrin] 5 mg PO HS 07/17/17 12/13/18 lisinopriL [Zestril] 2.5 mg PO QAM 07/17/17 12/13/18 Apixaban [Eliquis] 5 mg PO BID 05/30/18 12/13/18 Aspirin 81 mg PO DAILY 05/30/18 12/13/18 Atorvastatin [Lipitor] 20 mg PO Q48H 05/30/18 12/13/18 Flecainide [Tambocor] 25 mg PO Q12HR 05/31/18 12/13/18 Metoprolol Succinate (ER) [Toprol 25 mg PO QAM 11/20/18 12/13/18 Xl] carvediloL [Coreg] 6.25 mg PO BID 12/13/18 12/13/18 Previous Rx's Medication Instructions Recorded Sennosides-Docusate Sodium 1 tab PO BID #60 tablet 11/23/18 [Senokot-S] Allergies Allergy/AdvReac Type Severity Reaction Status Date / Time clarithromycin [From Biaxin] Allergy Anaphylaxis Verified 10/21/20 12:20 clindamycin Allergy Anaphylaxis Verified 10/21/20 12:20 Penicillins Allergy Anaphylaxis Verified 10/21/20 12:20 shellfish derived [Crab] Allergy Anaphylaxis Verified 10/21/20 12:20 Review of Systems ROS Statement: Those systems with pertinent positive or pertinent negative responses have been documented in the HPI. ROS Other: All systems not noted in ROS Statement are negative. Past Medical History Past Medical History: Atrial Fibrillation, GERD/Reflux, Hypertension, Osteoarthritis (OA) Additional Past Medical History / Comment(s): 07-29-17 blood clot upper extremity and neck History of Any Multi-Drug Resistant Organisms: None Reported Past Surgical History: Cardiac Ablation, Cholecystectomy, Heart Catheterization, Hernia Repair, Pacemaker Additional Past Surgical History / Comment(s): lt shoulder surg, mitral valve repair in 2012. Past Anesthesia/Blood Transfusion Reactions: No Reported Reaction Additional Past Anesthesia/Blood Transfusion Reaction / Comment(s): no hx blood transfusion Type of Cardiac Device: Permanent Pacemaker Device Placement Date:: 07-25-17 [facility] Past Psychological History: No Psychological Hx Reported Past Alcohol Use History: Daily Past Drug Use History: None Reported - Past Family History Mother Family Medical History: Cancer Father Family Medical History: Cancer General Exam - General Exam Comments Initial Comments: GENERAL: Patient is well-developed and well-nourished. Patient is nontoxic and well- hydrated and is in no acute distress. ENT: Neck is soft and supple. No significant lymphadenopathy is noted. Oropharynx is clear. Moist mucous membranes. Neck has full range of motion without eliciting any pain. EYES: The sclera were anicteric and conjunctiva were pink and moist. Extraocular movements were intact and pupils were equal round and reactive to light. Eyelids were unremarkable. PULMONARY: Unlabored respirations. Good breath sounds bilaterally. CARDIOVASCULAR: Patient has an irregular heartbeat about 60 beats a minute ABDOMEN: Soft and nontender with normal bowel sounds. SKIN: Skin is clear with no lesions or rashes and otherwise unremarkable. NEUROLOGIC: Patient is alert and oriented x3. Cranial nerves II through XII are grossly intact. Motor and sensory are also intact. Normal speech, volume and content. Symmetrical smile. MUSCULOSKELETAL: Normal extremities with adequate strength and full range of motion. There is no calf tenderness. 1+ edema bilaterally LYMPHATICS: No significant lymphadenopathy is noted PSYCHIATRIC: Normal psychiatric evaluation. Limitations: no limitations Course Vital Signs 10/21/20 10/21/20 10/21/20 12:14 12:37 15:01 Temperature 98.3 F Pulse Rate 70 52 L 81 Respiratory 16 16 16 Rate Blood Pressure 178/104 154/90 172/89 O2 Sat by Pulse 97 99 94 L Oximetry Medical Decision Making - Medical Decision Making EKG shows sinus rhythm with occasional PVC at 66 bpm SC interval is 216 QRS is 160 QT interval is 540 QTC is 566. Patient's EKG shows a right bundle branch block. - Lab Data Result diagrams: 10/21/20 12:26 10/21/20 12:26 Lab Results 10/21/20 10/21/20 10/21/20 Range/Units 12:26 12:26 12:26 WBC 7.9 (3.8-10.6) k/uL RBC 4.19 L (4.30-5.90) m/uL Hgb 13.8 (13.0-17.5) gm/dL Hct 40.8 (39.0-53.0) % MCV 97.5 (80.0-100.0) fL MCH 33.0 (25.0-35.0) pg MCHC 33.9 (31.0-37.0) g/dL RDW 13.5 (11.5-15.5) % Plt Count 257 (150-450) k/uL MPV 8.4 Neutrophils % 65 % Lymphocytes % 20 % Monocytes % 9 % Eosinophils % 4 % Basophils % 1 % Neutrophils # 5.1 (1.3-7.7) k/uL Lymphocytes # 1.6 (1.0-4.8) k/uL Monocytes # 0.7 (0-1.0) k/uL Eosinophils # 0.3 (0-0.7) k/uL Basophils # 0.1 (0-0.2) k/uL PT 15.0 H (9.0-12.0) sec INR 1.5 H (<1.2) APTT 33.2 H (22.0-30.0) sec D-Dimer 0.31 (<0.60) mg/L FEU Sodium 140 (137-145) mmol/L Potassium 4.2 (3.5-5.1) mmol/L Chloride 104 (98-107) mmol/L Carbon Dioxide 28 (22-30) mmol/L Anion Gap 8 mmol/L BUN 24 H (9-20) mg/dL Creatinine 1.01 (0.66-1.25) mg/dL Est GFR (CKD-EPI)AfAm 81 (>60 ml/min/1.73 sqM) Est GFR (CKD-EPI)NonAf 70 (>60 ml/min/1.73 sqM) Glucose 95 (74-99) mg/dL Plasma Lactic Acid Earle (0.7-2.0) mmol/L Calcium 9.5 (8.4-10.2) mg/dL Magnesium 2.0 (1.6-2.3) mg/dL Total Bilirubin 1.3 (0.2-1.3) mg/dL AST 31 (17-59) U/L ALT 27 (4-49) U/L Alkaline Phosphatase 125 (38-126) U/L Troponin I (0.000-0.034) ng/mL NT-Pro-B Natriuret Pep pg/mL Total Protein 7.7 (6.3-8.2) g/dL Albumin 4.4 (3.5-5.0) g/dL Urine Color Urine Appearance (Clear) Urine pH (5.0-8.0) Ur Specific [place] (1.001-1.035) Urine Protein (Negative) Urine Glucose (UA) (Negative) Urine Ketones (Negative) Urine Blood (Negative) Urine Nitrite (Negative) Urine Bilirubin (Negative) Urine Urobilinogen (<2.0) mg/dL Ur Leukocyte Esterase (Negative) Urine RBC (0-5) /hpf Urine WBC (0-5) /hpf Ur Squamous Epith Cells (0-4) /hpf Urine Bacteria (None) /hpf Urine Mucus (None) /hpf Coronavirus (PCR) (Not Detectd) 10/21/20 10/21/20 10/21/20 Range/Units 12:26 12:26 12:26 WBC (3.8-10.6) k/uL RBC (4.30-5.90) m/uL Hgb (13.0-17.5) gm/dL Hct (39.0-53.0) % MCV (80.0-100.0) fL MCH (25.0-35.0) pg MCHC (31.0-37.0) g/dL RDW (11.5-15.5) % Plt Count (150-450) k/uL MPV Neutrophils % % Lymphocytes % % Monocytes % % Eosinophils % % Basophils % % Neutrophils # (1.3-7.7) k/uL Lymphocytes # (1.0-4.8) k/uL Monocytes # (0-1.0) k/uL Eosinophils # (0-0.7) k/uL Basophils # (0-0.2) k/uL PT (9.0-12.0) sec INR (<1.2) APTT (22.0-30.0) sec D-Dimer (<0.60) mg/L FEU Sodium (137-145) mmol/L Potassium (3.5-5.1) mmol/L Chloride (98-107) mmol/L Carbon Dioxide (22-30) mmol/L Anion Gap mmol/L BUN (9-20) mg/dL Creatinine (0.66-1.25) mg/dL Est GFR (CKD-EPI)AfAm (>60 ml/min/1.73 sqM) Est GFR (CKD-EPI)NonAf (>60 ml/min/1.73 sqM) Glucose (74-99) mg/dL Plasma Lactic Acid Earle 1.3 (0.7-2.0) mmol/L Calcium (8.4-10.2) mg/dL Magnesium (1.6-2.3) mg/dL Total Bilirubin (0.2-1.3) mg/dL AST (17-59) U/L ALT (4-49) U/L Alkaline Phosphatase (38-126) U/L Troponin I <0.012 (0.000-0.034) ng/mL NT-Pro-B Natriuret Pep 2910 pg/mL Total Protein (6.3-8.2) g/dL Albumin (3.5-5.0) g/dL Urine Color Urine Appearance (Clear) Urine pH (5.0-8.0) Ur Specific [place] (1.001-1.035) Urine Protein (Negative) Urine Glucose (UA) (Negative) Urine Ketones (Negative) Urine Blood (Negative) Urine Nitrite (Negative) Urine Bilirubin (Negative) Urine Urobilinogen (<2.0) mg/dL Ur Leukocyte Esterase (Negative) Urine RBC (0-5) /hpf Urine WBC (0-5) /hpf Ur Squamous Epith Cells (0-4) /hpf Urine Bacteria (None) /hpf Urine Mucus (None) /hpf Coronavirus (PCR) (Not Detectd) 10/21/20 10/21/20 Range/Units 12:27 12:27 WBC (3.8-10.6) k/uL RBC (4.30-5.90) m/uL Hgb (13.0-17.5) gm/dL Hct (39.0-53.0) % MCV (80.0-100.0) fL MCH (25.0-35.0) pg MCHC (31.0-37.0) g/dL RDW (11.5-15.5) % Plt Count (150-450) k/uL MPV Neutrophils % % Lymphocytes % % Monocytes % % Eosinophils % % Basophils % % Neutrophils # (1.3-7.7) k/uL Lymphocytes # (1.0-4.8) k/uL Monocytes # (0-1.0) k/uL Eosinophils # (0-0.7) k/uL Basophils # (0-0.2) k/uL PT (9.0-12.0) sec INR (<1.2) APTT (22.0-30.0) sec D-Dimer (<0.60) mg/L FEU Sodium (137-145) mmol/L Potassium (3.5-5.1) mmol/L Chloride (98-107) mmol/L Carbon Dioxide (22-30) mmol/L Anion Gap mmol/L BUN (9-20) mg/dL Creatinine (0.66-1.25) mg/dL Est GFR (CKD-EPI)AfAm (>60 ml/min/1.73 sqM) Est GFR (CKD-EPI)NonAf (>60 ml/min/1.73 sqM) Glucose (74-99) mg/dL Plasma Lactic Acid Earle (0.7-2.0) mmol/L Calcium (8.4-10.2) mg/dL Magnesium (1.6-2.3) mg/dL Total Bilirubin (0.2-1.3) mg/dL AST (17-59) U/L ALT (4-49) U/L Alkaline Phosphatase (38-126) U/L Troponin I (0.000-0.034) ng/mL NT-Pro-B Natriuret Pep pg/mL Total Protein (6.3-8.2) g/dL Albumin (3.5-5.0) g/dL Urine Color Yellow Urine Appearance Clear (Clear) Urine pH 6.5 (5.0-8.0) Ur Specific [place] 1.017 (1.001-1.035) Urine Protein Trace H (Negative) Urine Glucose (UA) Negative (Negative) Urine Ketones Negative (Negative) Urine Blood Trace H (Negative) Urine Nitrite Negative (Negative) Urine Bilirubin Negative (Negative) Urine Urobilinogen 2.0 (<2.0) mg/dL Ur Leukocyte Esterase Negative (Negative) Urine RBC 15 H (0-5) /hpf Urine WBC 2 (0-5) /hpf Ur Squamous Epith Cells <1 (0-4) /hpf Urine Bacteria Rare H (None) /hpf Urine Mucus Rare H (None) /hpf Coronavirus (PCR) Not Detected (Not Detectd) Disposition Clinical Impression: Dyspnea, Hematuria Disposition: ADMITTED IP TO THIS HOSP Referrals: Herman Pearce MD [Primary Care Provider] - 1-2 days Time of Disposition: 15:16
[2020-10-21 13:00] LABS: Basophils # (A) 0.1 k/uL (0-0.2); Basophils % (A) 1 %; Eosinophils # (A) 0.3 k/uL (0-0.7); Eosinophils % (A) 4 %; HCT 40.8 % (39.0-53.0); HGB 13.8 gm/dL (13.0-17.5); Lymphocytes # (A) 1.6 k/uL (1.0-4.8); Lymphocytes % (A) 20 %; MCHC 33.9 g/dL (31.0-37.0); MCV 97.5 fL (80.0-100.0); Mean Platelet Volume 8.4; Monocytes # (A) 0.7 k/uL (0-1.0); Monocytes % (A) 9 %; Neutrophils # (A) 5.1 k/uL (1.3-7.7); Neutrophils % (A) 65 %; Platelet Count 257 k/uL (150-450); RBC 4.19 m/uL (4.30-5.90); RDW 13.5 % (11.5-15.5); WBC 7.9 k/uL (3.8-10.6)
[2020-10-21 13:05] LABS: Appearance,Urine Clear (Clear); Bacteria,Urine Rare /hpf; Bilirubin,Urine Negative (Negative); Blood,Urine Trace (Negative); Color,Urine Yellow; Glucose,Urine (UA) Negative (Negative); Ketones,Urine Negative (Negative); Leukocyte Esterase,Urine Negative (Negative); Mucus,Urine Rare /hpf; Nitrite,Urine Negative (Negative); PH, Urine 6.5 (5.0-8.0); Protein,Urine Trace (Negative); RBC,Urine 15 /hpf (0-5); Specific Gravity,Urine 1.017 (1.001-1.035); Squamous Epithelial Cell,Urine <1 /hpf (0-4); WBC,Urine 2 /hpf (0-5)
--- NOTE | 2020-10-21 13:10 | XR ---
EXAMINATION TYPE: XR chest 2V DATE OF EXAM: 10/21/2020 COMPARISON: 07/26/2017 HISTORY: Shortness of breath TECHNIQUE: Frontal and lateral views of the chest are obtained. FINDINGS: Scattered senescent parenchymal changes noted. Hyperinflation compatible with COPD. No evidence for infiltrate. No evidence for atelectasis. Heart size is stable. Mediastinal structures are stable and grossly unremarkable. No evidence for hilar prominence. Degenerative changes dorsal spine. IMPRESSION: 1. No evidence for acute pulmonary disease.
[2020-10-21 13:14] LABS: INR 1.5 (<1.2)
[2020-10-21 13:15] LABS: D-Dimer 0.31 mg/L FEU (<0.60); Partial Thromboplastin Time 33.2 sec (22.0-30.0)
[2020-10-21 13:16] LABS: Albumin 4.4 g/dL (3.5-5.0); Calcium 9.5 mg/dL (8.4-10.2); Potassium 4.2 mmol/L (3.5-5.1); Total Bilirubin 1.3 mg/dL (0.2-1.3); Total Protein 7.7 g/dL (6.3-8.2)
--- NOTE | 2020-10-21 14:40 | US ---
EXAMINATION TYPE: US kidneys/renal and bladder DATE OF EXAM: 10/21/2020 COMPARISON: US 11/09/11 CLINICAL HISTORY: Hematuria. EXAM MEASUREMENTS: Right Kidney: 11.1 x 5.1 x 4.3 cm Left Kidney: 12.6 x 5.5 x 4.5 cm Post Void Residual Volume: Not calculated Right Kidney: No hydronephrosis or masses seen Left Kidney: No hydronephrosis or masses seen Bladder: wnl Bilateral Jets seen: Yes Normal Post Void Residual: Not calculated on this EC patient There is no evidence for hydronephrosis at this point in time. No nephrolithiasis is seen. No gus s are identified. The urinary bladder is anechoic. Bilateral ureteral jets are seen. IMPRESSION: WNL
[2020-10-21] MEDS ORDERED: FUROSEMIDE 10 MG/ML 2 ML VIAL IV ONE (15:10)
[2020-10-21] MEDS ORDERED: NALOXONE 0.4 MG/ML 1 ML VIAL IV PRN (17:21)
--- NOTE | 2020-10-21 17:27 | P.HPIM ---
History of Present Illness H&P Date: 10/21/20 Chief Complaint: sob 80-year-old male presents emergency Department presents emergency department today complaining that he has shortness of breath with exertion ever since S . Patient states she has a history of atrial fibrillation s/p PM. He is on Xarelto. Also has swelling in both legs few days ago but now this is better. Patient also was noticed some blood in his urine. Patient states he had no recent fever chills or cough. Patient states she's had no chest pain or abdominal pain. Patient denies any lightheadedness or dizziness. Patient denies any black or bloody stools. Patient denies headache patient denies numbness weakness. Patient denies any palpitations. Review of Systems Complete review of system performed, pertinent positives per HPI, otherwise negative Past Medical History Past Medical History: Atrial Fibrillation, GERD/Reflux, Hypertension, Osteoarthritis (OA) Additional Past Medical History / Comment(s): 07-29-17 blood clot upper extremity and neck History of Any Multi-Drug Resistant Organisms: None Reported Past Surgical History: Cardiac Ablation, Cholecystectomy, Heart Catheterization, Hernia Repair, Pacemaker Additional Past Surgical History / Comment(s): lt shoulder surg, mitral valve repair in 2012. Past Anesthesia/Blood Transfusion Reactions: No Reported Reaction Additional Past Anesthesia/Blood Transfusion Reaction / Comment(s): no hx blood transfusion Type of Cardiac Device: Permanent Pacemaker Device Placement Date:: 07-25-17 [facility] Past Psychological History: No Psychological Hx Reported Past Alcohol Use History: Daily Past Drug Use History: None Reported - Past Family History Mother Family Medical History: Cancer Father Family Medical History: Cancer Medications and Allergies Home Medications Medication Instructions Recorded Confirmed Type Cholecalciferol (Vitamin D3) 50 mcg PO DAILY 07/17/17 10/21/20 History [Vitamin D3] Famotidine 40 mg PO DAILY 07/17/17 10/21/20 History Atorvastatin [Lipitor] 20 mg PO DAILY 05/30/18 10/21/20 History Flecainide [Tambocor] 50 mg PO BID 05/31/18 10/21/20 History carvediloL [Coreg] 6.25 mg PO BID 12/13/18 10/21/20 History Aspirin EC [Ecotrin Low Dose] 81 mg PO DAILY 10/21/20 10/21/20 History Rivaroxaban [Xarelto] 20 mg PO DAILY 10/21/20 10/21/20 History lisinopriL 20 mg PO DAILY 10/21/20 10/21/20 History Allergies Allergy/AdvReac Type Severity Reaction Status Date / Time clarithromycin [From Biaxin] Allergy Anaphylaxis Verified 10/21/20 15:46 clindamycin Allergy Anaphylaxis Verified 10/21/20 15:46 Penicillins Allergy Anaphylaxis Verified 10/21/20 15:46 shellfish derived [Crab] Allergy Anaphylaxis Verified 10/21/20 15:46 Physical Exam Vitals: Vital Signs Temp Pulse Resp BP Pulse Ox 10/21/20 16:04 63 16 171/89 99 10/21/20 15:01 81 16 172/89 94 L 10/21/20 12:37 52 L 16 154/90 99 10/21/20 12:14 98.3 F 70 16 178/104 97 Intake and Output 10/21/20 10/21/20 10/21/20 06:59 14:59 22:59 Other: Weight 81.647 kg Constitutional: No acute distress, conversant, pleasant Eyes:Anicteric sclerae, moist conjunctiva, no lid-lag, PERRLA, ENMT: Oropharynx clear, no erythema, exudates Neck: Supple, FROM, no masses, or JVD, No carotid bruits, No thyromegaly Lungs: Clear to auscultation, Clear to percussion, Normal respiratory effort, no accessory muscle use Cardiovascular: Heart regular in rate and rhythm, No murmurs, gallops, or rubs, No peripheral edema Abdominal: Soft, Nontender, no guarding, rebound or rigidity, Normoactive bowel sounds, No hepatomegaly, No splenomegaly, No palpable mass Skin: Normal temperature, tone, texture, turgor, no induration, No subcutaneous nodules, No rash, lesions, No ulcers Extremities: No digital cyanosis, No clubbing, Pedal pulses intact and symmetric al, Radial pulses intact and symmetrical, No calf tenderness Psychiatric: Alert and oriented to person, place and time, appropriate affect, intact judgement Neuro: Muscles Strength 5/5 in all 4 extremities, Sensation to light touch grossly present throughout, Cranial nerves II-XII grossly intact, no focal sensory deficits Results CBC & Chem 7: 10/21/20 12:26 10/21/20 12:26 Labs: Abnormal Lab Results - Last 24 Hours (Table) 10/21/20 10/21/20 10/21/20 Range/Units 12:26 12:26 12:26 RBC 4.19 L (4.30-5.90) m/uL PT 15.0 H (9.0-12.0) sec INR 1.5 H (<1.2) APTT 33.2 H (22.0-30.0) sec BUN 24 H (9-20) mg/dL Urine Protein (Negative) Urine Blood (Negative) Urine RBC (0-5) /hpf Urine Bacteria (None) /hpf Urine Mucus (None) /hpf 10/21/20 Range/Units 12:27 RBC (4.30-5.90) m/uL PT (9.0-12.0) sec INR (<1.2) APTT (22.0-30.0) sec BUN (9-20) mg/dL Urine Protein Trace H (Negative) Urine Blood Trace H (Negative) Urine RBC 15 H (0-5) /hpf Urine Bacteria Rare H (None) /hpf Urine Mucus Rare H (None) /hpf Assessment and Plan Plan: Acute CHF exacerbation Patient states he had an echo last February, will consult cardiology We'll leave decision to repeat an echocardiogram to cardiology Cycle troponins Lasix IV twice a day Atrial fibrillation, paroxysmal Continue antiarrhythmic medications Continue anticoagulation Rate controlled Hematuria Ultrasound of the bladder and kidneys reviewed, no abnormalities Follow up with urology, outpatient Essential hypertension Stable Resume meds Admit to observation
[2020-10-21] MEDS: carvediloL 6.25 MG TAB PO SCH (19:32)
[2020-10-21] MEDS: FLECAINIDE 50 MG TAB PO SCH (20:32)
[2020-10-21] MEDS ORDERED: FLECAINIDE 50 MG TAB PO SCH (21:00)
[2020-10-22 03:07] VITALS: RESP 16
[2020-10-22] MEDS ORDERED: FUROSEMIDE 10 MG/ML 2 ML VIAL IV SCH (06:00)
[2020-10-22] MEDS: carvediloL 6.25 MG TAB PO SCH (07:22)
[2020-10-22] MEDS: FLECAINIDE 50 MG TAB PO SCH (07:23)
[2020-10-22 08:04] VITALS: PULSE 50; TEMP 97.5
[2020-10-22] MEDS ORDERED: lisinopriL 20 MG TAB PO SCH (09:00)
[2020-10-22] MEDS ORDERED: RIVAROXABAN 20 MG TAB PO SCH (09:00)
[2020-10-22] MEDS ORDERED: ASPIRIN 81 MG PO SCH (09:00)
[2020-10-22] MEDS ORDERED: FUROSEMIDE 40 MG TAB PO SCH (09:00)
[2020-10-22] MEDS ORDERED: FAMOTIDINE 20 MG TAB PO SCH (09:00)
[2020-10-22] MEDS ORDERED: ATORVASTATIN 20 MG TAB PO SCH (09:00)
[2020-10-22] MEDS ORDERED: CHOLECALCIFEROL 25 MCG (1000 IU) TABLET PO SCH (09:00)
--- NOTE | 2020-10-22 09:41 | ECHOF ---
Referral Reason: MEASUREMENTS -------- HEIGHT: 177.8 cm WEIGHT: 81.7 kg BP: 172/89 RVIDd: 3.1 cm (< 3.3) IVSd: 1.3 cm (0.6 - 1.1) LVIDd: 5.3 cm (3.9 - 5.3) LVPWd: 1.7 cm (0.6 - 1.1) IVSs: 1.6 cm LVIDs: 3.9 cm LVPWs: 2.3 cm LAESV Index (A-L): 30.60 ml/m Ao Diam: 3.3 cm (2.0 - 3.7) AV Cusp: 1.9 cm (1.5 - 2.6) LA Diam: 4.4 cm (2.7 - 3.8) MV EXCURSION: 22.560 mm (> 18.000) MV EF SLOPE: 44 mm/s (70 - 150) EPSS: 1.1 cm MV E Ervin: 1.67 m/s MV DecT: 331 ms MV A Ervin: 0.85 m/s MV E/A Ratio: 1.95 RAP: 5.00 mmHg RVSP: 36.83 mmHg FINDINGS -------- This was a technically difficult study with suboptimal apical views. The left ventricular size is normal. There is mild concentric left ventricular hypertrophy. Overa ll left ventricular systolic function is moderate-severely impaired with, an EF between 30 - 35 %. The right ventricle is normal in size. LA is midly dilated 29-33ml/m2. The right atrium was not well visualized. Lumason used Interatrial and interventricular septum intact. There is no evidence of aortic regurgitation. There is no evidence of aortic stenosis. There is trace mitral regurgitation. [id number] mitral stenosis , with a MVA of 2.3cm (by PH T) MV Repair. Mild tricuspid regurgitation present. There is mild pulmonary hypertension. The right ventricular systolic pressure, as measured by Doppler, is 36.83mmHg. There is no pulmonic regurgitation present. The aortic root size is normal. IVC Not well visulized. There is no pericardial effusion. CONCLUSIONS -------- 1. The left ventricular size is normal. 2. There is mild concentric left ventricular hypertrophy. 3. Overall left ventricular systolic function is moderate-severely impaired with, an EF between 30 - 35 %. 4. LA is midly dilated 29-33ml/m2. 5. There is trace mitral regurgitation. 6. [id number] mitral stenosis. 7. , with a MVA of 2.3cm (by PHT) 8. MV Repair. 9. Mild tricuspid regurgitation present. 10. There is mild pulmonary hypertension. 11. The right ventricular systolic pressure, as measured by Doppler, is 36.83mmHg. G[employer] DERRICK OPERATOR: Clarissa Franklin RDCS
[2020-10-22 09:42] VITALS: BP 147/80
--- NOTE | 2020-10-22 09:47 | P.CRDCN ---
History of Present Illness Consult date: 10/22/20 History of present illness: HISTORY OF PRESENT ILLNESS: This is a 80-year-old male with a past medical history significant for paroxysmal atrial fibrillation on anticoagulation with Xarelto with previous cardioversion, mitral valve repair in 2013, permanent pacemaker insertion in 2018, hypertension, and GERD. Patient follows in the office with Dr. Haynes. We have been asked to see the patient in consultation for shortness of breath. Patient examined at the bedside. Patient states he recently started a new job at a [employer]. He states last week he worked 3 days (, , and ) and "overdid it" at work. He states on Monday he was moving a mattress with and began to feel short of breath going up and down the stairs. He states on Monday he began having increased lower extremity edema as well. He states he went for a massage on Monday and was short of breath walking from his car to the office and the massage therapist recommended he come to the hospital for further evaluation. Patient was started on IV lasix in the emergency room. Patient states his shortness of breath has resolved. Patient reports he walked to the nurse's stati on and back this morning without any shortness of breath. He denies any chest pain or pressure. EKG reveals sinus mechanism with first-degree AV block. Right bundle-branch block. Left ventricular fascicular block. Chest xray no evidence for acute pulmonary disease Laboratory data: WBC 7.9. Hemoglobin 13.8. Platelet count 257. D-dimer 0.31. Sodium 140. Potassium 4.2. BUN 24. Creatinine 1.01. Lactic acid 1.3. Troponin negative 3. BNP 2910. Current home cardiac medications include flecainide 25 mg twice a day, lisinopril 20 mg daily, Xarelto 20 mg daily, aspirin 81 mg daily, Lipitor 20 mg daily, and carvedilol 6.25 mg twice a day REVIEW OF SYSTEMS: At the time of my exam: CONSTITUTIONAL: Denies fever or chills. HEENT: Denies blurred vision, vision changes, or eye pain. Denies hemoptysis CARDIOVASCULAR: Denies chest pain. Denies orthopnea. Denies PND. Denies palpitations RESPIRATORY: Denies shortness of breath. GASTROINTESTINAL: Denies abdominal pain. Denies nausea or vomiting. HEMATOLOGIC: Denies bleeding disorders. GENITOURINARY: Denies any blood in urine. SKIN: Denies pruitis. Denies rash. PHYSICAL EXAM: VITAL SIGNS: Reviewed. GENERAL: Well-developed in no acute distress. HEENT: Head is normocephalic. Pupils are equal, round. Sclerae anicteric. Mucous membranes of the mouth are moist. Neck supple. No JVD or thyromegaly LUNGS: Respirations even and unlabored. Lungs diminished bilaterally. HEART: Regular rate and rhythm. S1 and S2 heard. ABDOMEN: Soft. Nondistended. Nontender. EXTREMITIES: Normal range of motion. No clubbing or cyanosis. Peripheral pulses intact. No lower extremity edema NEUROLOGIC: Awake and alert. Oriented x 3. ASSESSMENT: Possible mild new onset heart failure, type unknown, echo pending Paroxysmal atrial fibrillation, on anticoagulation with Xarelto History of cardioversion, 2017 History of permanent pacemaker insertion, [facility], 2018 History of mitral valve repair, 2012 Hypertension GERD Osteoarthritis Former nicotine dependence PLAN: Obtain 2D echo to assess cardiac structure and function Discontinue IV lasix Begin oral lasix 40mg daily Continue home cardiac medications Possible discharge home this afternoon or tomorrow Further recommendations pending patient course Nurse practitioner note has been reviewed by physician. Signing provider agrees with the documented findings, assessment, and plan of care. Past Medical History Past Medical History: Atrial Fibrillation, GERD/Reflux, Hypertension, Osteoarthritis (OA) Additional Past Medical History / Comment(s): 07-29-17 blood clot upper extremity and neck History of Any Multi-Drug Resistant Organisms: None Reported Past Surgical History: Cardiac Ablation, Cholecystectomy, Heart Catheterization, Hernia Repair, Pacemaker Additional Past Surgical History / Comment(s): lt shoulder surg, mitral valve repair in 2012. Past Anesthesia/Blood Transfusion Reactions: No Reported Reaction Additional Past Anesthesia/Blood Transfusion Reaction / Comment(s): no hx blood transfusion Type of Cardiac Device: Permanent Pacemaker Device Placement Date:: 07-25-17 [facility] Past Psychological History: No Psychological Hx Reported Past Alcohol Use History: Daily Past Drug Use History: None Reported - Past Family History Mother Family Medical History: Cancer Father Family Medical History: Cancer Medications and Allergies Home Medications Medication Instructions Recorded Confirmed Type Cholecalciferol (Vitamin D3) 50 mcg PO DAILY 07/17/17 10/21/20 History [Vitamin D3] Famotidine 40 mg PO DAILY 07/17/17 10/21/20 History Atorvastatin [Lipitor] 20 mg PO DAILY 05/30/18 10/21/20 History Flecainide [Tambocor] 25 mg PO BID 05/31/18 10/21/20 History carvediloL [Coreg] 6.25 mg PO BID 12/13/18 10/21/20 History Aspirin EC [Ecotrin Low Dose] 81 mg PO DAILY 10/21/20 10/21/20 History Rivaroxaban [Xarelto] 20 mg PO DAILY 10/21/20 10/21/20 History lisinopriL 20 mg PO DAILY 10/21/20 10/21/20 History Allergies Allergy/AdvReac Type Severity Reaction Status Date / Time clarithromycin [From Biaxin] Allergy Anaphylaxis Verified 10/21/20 15:46 clindamycin Allergy Anaphylaxis Verified 10/21/20 15:46 Penicillins Allergy Anaphylaxis Verified 10/21/20 15:46 shellfish derived [Crab] Allergy Anaphylaxis Verified 10/21/20 15:46 Physical Exam Vitals: Vital Signs Temp Pulse Pulse Resp BP BP Pulse Ox 10/22/20 07:00 97.5 F L 50 L 16 173/62 97 10/22/20 02:00 97.3 F L 48 L 16 134/68 97 10/21/20 23:01 54 L 18 124/69 96 10/21/20 19:30 62 18 138/68 98 10/21/20 16:55 98.1 F 50 L 16 129/69 96 10/21/20 16:04 63 16 171/89 99 10/21/20 15:01 81 16 172/89 94 L 10/21/20 12:37 52 L 16 154/90 99 10/21/20 12:14 98.3 F 70 16 178/104 97 Intake and Output 10/21/20 10/22/20 10/22/20 22:59 06:59 14:59 Other: Voiding Method Toilet # Voids 1 Weight 81.647 kg Results 10/21/20 12:26 10/21/20 12:26 Cardiac Enzymes 10/21/20 10/21/20 10/21/20 Range/Units 12:26 12:26 15:34 AST 31 (17-59) U/L Troponin I <0.012 <0.012 (0.000-0.034) ng/mL 10/21/20 Range/Units 18:16 AST (17-59) U/L Troponin I <0.012 (0.000-0.034) ng/mL Coagulation 10/21/20 Range/Units 12:26 PT 15.0 H (9.0-12.0) sec APTT 33.2 H (22.0-30.0) sec CBC 10/21/20 Range/Units 12:26 WBC 7.9 (3.8-10.6) k/uL RBC 4.19 L (4.30-5.90) m/uL Hgb 13.8 (13.0-17.5) gm/dL Hct 40.8 (39.0-53.0) % Plt Count 257 (150-450) k/uL Comprehensive Metabolic Panel 10/21/20 Range/Units 12:26 Sodium 140 (137-145) mmol/L Potassium 4.2 (3.5-5.1) mmol/L Chloride 104 (98-107) mmol/L Carbon Dioxide 28 (22-30) mmol/L BUN 24 H (9-20) mg/dL Creatinine 1.01 (0.66-1.25) mg/dL Glucose 95 (74-99) mg/dL Calcium 9.5 (8.4-10.2) mg/dL AST 31 (17-59) U/L ALT 27 (4-49) U/L Alkaline Phosphatase 125 (38-126) U/L Total Protein 7.7 (6.3-8.2) g/dL Albumin 4.4 (3.5-5.0) g/dL Current Medications Generic Name Dose Route Start Last Admin Trade Name Freq PRN Reason Stop Dose Admin Aspirin 81 mg 10/22/20 09:00 10/22/20 07:22 Aspirin 81 Mg PO 81 mg DAILY AJAY Administration Atorvastatin Calcium 20 mg 10/22/20 09:00 10/22/20 07:22 Atorvastatin 20 Mg Tab PO 20 mg DAILY AJAY Administration Carvedilol 6.25 mg 10/21/20 17:30 10/22/20 07:22 Carvedilol 6.25 Mg Tab PO 6.25 mg AC-BID AJAY Administration Cholecalciferol 50 mcg 10/22/20 09:00 10/22/20 07:22 Cholecalciferol 25 Mcg (1000 Iu) Tablet PO 50 mcg DAILY AJAY Administration Famotidine 40 mg 10/22/20 09:00 10/22/20 07:22 Famotidine 20 Mg Tab PO 40 mg DAILY AJAY Administration Flecainide Acetate 25 mg 10/21/20 21:00 10/22/20 07:23 Flecainide 50 Mg Tab PO 25 mg BID AJAY Administration Furosemide 20 mg 10/22/20 06:00 10/22/20 05:45 Furosemide 10 Mg/Ml 2 Ml Vial IV 20 mg Q12H AJAY Administration Lisinopril 20 mg 10/22/20 09:00 10/22/20 07:22 Lisinopril 20 Mg Tab PO 20 mg DAILY AJAY Administration Naloxone HCl 0.2 mg 10/21/20 17:21 Naloxone 0.4 Mg/Ml 1 Ml Vial IV Q2M PRN Opioid Reversal Rivaroxaban 20 mg 10/22/20 09:00 10/22/20 07:22 Rivaroxaban 20 Mg Tab PO 20 mg DAILY AJAY Administration Intake and Output 10/21/20 10/22/20 10/22/20 22:59 06:59 14:59 Other: Voiding Method Toilet # Voids 1 Weight 81.647 kg 10/21/20 12:26 10/21/20 12:26
[2020-10-22 10:09] LABS: Basophils # (A) 0.03 X 10*3/uL (0.00-0.10); Basophils % (A) 0.5 %; Eosinophils # (A) 0.48 X 10*3/uL (0.04-0.35); Eosinophils % (A) 8.6 %; HCT 35.8 % (39.6-50.0); HGB 11.8 g/dL (13.0-17.0); Lymphocytes # (A) 1.53 X 10*3/uL (0.90-5.00); Lymphocytes % (A) 27.3 %; Mean Platelet Volume 10.9 fL (9.5-12.2); Monocytes # (A) 0.82 X 10*3/uL (0.20-1.00); Monocytes % (A) 14.6 %; Neutrophils # (A) 2.73 X 10*3/uL (1.80-7.70); Neutrophils % (A) 48.8 %; Platelet Count 234 X 10*3/uL (140-440); RBC 3.69 X 10*6/uL (4.40-5.60); RDW 14.3 % (11.5-14.5)
[2020-10-22 10:27] VITALS: BMI 25.8
[2020-10-22 14:51] LABS: Albumin 3.8 g/dL (3.80-4.90); Albumin/Globulin Ratio 1.46 (1.60-3.17); Anion Gap 9.5 mmol/L (4.00-12.00); Calcium 8.7 mg/dL (8.7-10.3); Carbon Dioxide 28.5 mmol/L (21.6-31.8); Globulin 2.6 g/dL (1.6-3.3); Magnesium 2.1 mg/dL (1.5-2.4); Non-African American GFR(CKD) 70.8 (60.0-200.0); Phosphorus 4.1 mg/dL (2.4-5.1); Potassium 3.4 mmol/L (3.5-5.5); Total Bilirubin 1.5 mg/dL (0.3-1.2); Total Protein 6.4 g/dL (6.2-8.2)
[2020-10-22] MEDS ORDERED: POTASSIUM CHLORIDE ER 20 MEQ TAB.ER PO STA (15:34)
--- NOTE | 2020-10-22 15:50 | P.DS ---
Providers Date of admission: 10/21/20 16:01 Expected date of discharge: 10/22/20 Attending physician: Eleazar Lombardo MD Consults: 10/21/20 15:17 Consult Physician Routine Consulting Provider: [facility] Consult Reason/Comments: Dyspnea Do you want consulting provider notified?: Yes Primary care physician: [facility] Course: 80-year-old male presents emergency Department presents emergency department today complaining that he has shortness of breath with exertion ever since Monday. Patient states she has a history of atrial fibrillation s/p PM. He is on Xarelto. Also has swelling in both legs few days ago but now this is better. Patient also was noticed some blood in his urine. Patient states he had no recent fever chills or cough. Patient states she's had no chest pain or abdominal pain. Patient denies any lightheadedness or dizziness. Patient denies any black or bloody stools. Patient denies headache patient denies numbness weakness. Patient denies any palpitations. In the emergency department laboratory workup was unremarkable. Chest x-ray showed no acute cardiopulmonary disease. His BNP was slightly elevated at 2900. He was admitted for acute exacerbation of congestive heart failure. He was started on Lasix 40 mg IV twice a day. He had an echocardiogram today that showed ejection fraction of 30-35%. He was seen by cardiology who switched his Lasix to oral today due to clinical improvement. Due to a few episodes of hematuria over the past several days he underwent bladder and renal ultrasound that came back okay. He did not have any further episodes of hematuria since admission. He does see a urologist for his prostate issues, was told to follow-up with them. He was also told to follow-up with cardiology in 1 week. Case discussed with cardiology today, he was cleared for discharge. He'll be discharged home in a stable condition. Time for discharge 35 minutes. Plan - Discharge Summary Discharge Rx Participant: No New Discharge Prescriptions: New Furosemide [Lasix] 40 mg PO DAILY 30 Days #30 tab Potassium Chloride ER [K-Dur 20] 20 meq PO DAILY 30 Days #30 tab Continue Famotidine 40 mg PO DAILY Cholecalciferol (Vitamin D3) [Vitamin D3] 50 mcg PO DAILY Atorvastatin [Lipitor] 20 mg PO DAILY Flecainide [Tambocor] 25 mg PO BID carvediloL [Coreg] 6.25 mg PO BID lisinopriL 20 mg PO DAILY Rivaroxaban [Xarelto] 20 mg PO DAILY Aspirin EC [Ecotrin Low Dose] 81 mg PO DAILY Discharge Medication List Cholecalciferol (Vitamin D3) [Vitamin D3] 50 mcg PO DAILY 07/17/17 [History] Famotidine 40 mg PO DAILY 07/17/17 [History] Atorvastatin [Lipitor] 20 mg PO DAILY 05/30/18 [History] Flecainide [Tambocor] 25 mg PO BID 05/31/18 [History] carvediloL [Coreg] 6.25 mg PO BID 12/13/18 [History] Aspirin EC [Ecotrin Low Dose] 81 mg PO DAILY 10/21/20 [History] Rivaroxaban [Xarelto] 20 mg PO DAILY 10/21/20 [History] lisinopriL 20 mg PO DAILY 10/21/20 [History] Furosemide [Lasix] 40 mg PO DAILY 30 Days #30 tab 10/22/20 [Rx] Potassium Chloride ER [K-Dur 20] 20 meq PO DAILY 30 Days #30 tab 10/22/20 [Rx] Follow up Appointment(s)/Referral(s): Kvng Haynes MD [STAFF PHYSICIAN] - 1 Week Herman Pearce MD [Primary Care Provider] - 1-2 days Patient Instructions/Handouts: Heart Failure (DC), Dyspnea (DC)
== END 2020-10-22 16:01 | disposition home or self-care (01) ==
LOC: EC 12:13 → 6NMEDSUR 16:01
PROVIDERS: ADMIT Internal Medicine; ATTEND Internal Medicine
DX: I11.0 Hypertensive heart disease with heart failure (principal); I50.9 Heart failure, unspecified; I48.0 Paroxysmal atrial fibrillation; K21.9 Gastro-esophageal reflux disease without esophagitis; I44.0 Atrioventricular block, first degree; I45.2 Bifascicular block; R31.9 Hematuria, unspecified; N42.9 Disorder of prostate, unspecified; M19.90 Unspecified osteoarthritis, unspecified site; Z20.822 Contact with and (suspected) exposure to COVID-19; Z79.82 Long term (current) use of aspirin; Z79.01 Long term (current) use of anticoagulants; Z79.899 Other long term (current) drug therapy; Z88.1 Allergy status to other antibiotic agents; Z91.013 Allergy to seafood; Z88.0 Allergy status to penicillin; Z87.891 Personal history of nicotine dependence; Z95.0 Presence of cardiac pacemaker; Z86.718 Personal history of other venous thrombosis and embolism; Z98.890 Other specified postprocedural states; Z90.49 Acquired absence of other specified parts of digestive tract; Z80.9 Family history of malignant neoplasm, unspecified
CPT/HCPCS: 96376; 96374; 99285; 36415; 93005; 85379; 83880; 80053 ×2; 83605; 83735 ×2; 84100; 84484; 85025 ×2; 85610; 85730; 81001; 87635; 71046; 76770; G0378 ×2; C8929; J1940 ×2; Q9950; 93306

== ENCOUNTER → 2020-10-27 | Outpatient (CLI) | payer MEDICARE, OTHER ==
[2020-10-27 19:06] LABS: Basophils # (A) 0.04 X 10*3/uL (0.00-0.10); Basophils % (A) 0.6 %; Eosinophils # (A) 0.48 X 10*3/uL (0.04-0.35); Eosinophils % (A) 7.3 %; HCT 43.3 % (39.6-50.0); Lymphocytes # (A) 1.68 X 10*3/uL (0.90-5.00); Lymphocytes % (A) 25.6 %; MCHC 32.3 g/dL (32.0-37.0); MCV 99.1 fL (80.0-97.0); Mean Platelet Volume 10.9 fL (9.5-12.2); Monocytes # (A) 0.74 X 10*3/uL (0.20-1.00); Monocytes % (A) 11.3 %; Neutrophils # (A) 3.59 X 10*3/uL (1.80-7.70); Neutrophils % (A) 54.9 %; Platelet Count 298 X 10*3/uL (140-440); RBC 4.37 X 10*6/uL (4.40-5.60); RDW 14.1 % (11.5-14.5); WBC 6.55 X 10*3/uL (4.50-10.00)
[2020-10-27 20:57] LABS: African American GFR (CKD) 59.7 (60.0-200.0); Albumin 4.2 g/dL (3.80-4.90); Albumin/Globulin Ratio 1.31 (1.60-3.17); Anion Gap 11.4 mmol/L (4.00-12.00); BUN/Creat Ratio 26.92 Ratio (12.00-20.00); Calcium 9.2 mg/dL (8.7-10.3); Carbon Dioxide 30.6 mmol/L (21.6-31.8); Globulin 3.2 g/dL (1.6-3.3); Non-African American GFR(CKD) 51.5 (60.0-200.0); Potassium 4.6 mmol/L (3.5-5.5); Total Bilirubin 1.1 mg/dL (0.2-1.2); Total Protein 7.4 g/dL (6.2-8.2)
== END | disposition home or self-care (01) ==
LOC: LABWHC1 11:27
PROVIDERS: ATTEND Family Medicine
DX: I50.9 Heart failure, unspecified (principal)
CPT/HCPCS: 36415; 80053; 83880; 85025

== ENCOUNTER → 2020-11-03 | Outpatient (CLI) | payer MEDICARE, OTHER ==
[2020-11-04 00:10] LABS: African American GFR (CKD) 59.7 (60.0-200.0); BUN/Creat Ratio 25.38 Ratio (12.00-20.00); Calcium 9.2 mg/dL (8.7-10.3); Non-African American GFR(CKD) 51.5 (60.0-200.0); Potassium 4.9 mmol/L (3.5-5.5)
== END ==
LOC: LABWHC1 11:23
PROVIDERS: ATTEND Family Medicine
DX: I50.9 Heart failure, unspecified (principal)
CPT/HCPCS: 36415; 80048; 83880

== ENCOUNTER → 2021-06-25 | Outpatient (CLI) | payer MEDICARE, OTHER ==
[2021-06-25 13:04] LABS: Basophils % (A) 1 %; Eosinophils # (A) 0.3 k/uL (0-0.7); Eosinophils % (A) 5 %; HCT 39.8 % (39.0-53.0); HGB 12.9 gm/dL (13.0-17.5); Lymphocytes # (A) 1.5 k/uL (1.0-4.8); Lymphocytes % (A) 26 %; MCH 32.4 pg (25.0-35.0); MCHC 32.4 g/dL (31.0-37.0); MCV 99.9 fL (80.0-100.0); Monocytes # (A) 0.4 k/uL (0-1.0); Monocytes % (A) 6 %; Neutrophils # (A) 3.6 k/uL (1.3-7.7); Neutrophils % (A) 60 %; Platelet Count 246 k/uL (150-450); RBC 3.99 m/uL (4.30-5.90); RDW 13.2 % (11.5-15.5); WBC 5.9 k/uL (3.8-10.6)
[2021-06-25 13:39] LABS: Potassium 4.1 mmol/L (3.5-5.1)
== END | disposition home or self-care (01) ==
LOC: LABPAT 11:56
PROVIDERS: ATTEND Internal Medicine Clinical Cardiac Electrophysiology
DX: Z01.812 Encounter for preprocedural laboratory examination (principal); U07.1 COVID-19; I48.0 Paroxysmal atrial fibrillation
CPT/HCPCS: 80051; 82565; 84520; 85025; 87635

== ENCOUNTER 2021-06-29 08:40 | Day surgery (SDC) | payer MEDICARE, OTHER ==
[2021-06-25 10:37] VITALS: BMI 25.8
[~2021-06-29 08:40] MED LIST changes: -DEXAMETHASONE SOD PHOSPHATE 10 MG/ML 1 ML VIAL IV ONE; -LACTATED RINGERS 1,000 ML IV SCH; -LIDOCAINE 1% 20 ML VIAL (10MG/ML) FOR IV START INTRADERMA PRN; +LIDOCAINE 1% INJ 10MG/ML (20 ML MDV) ONE; -MIDAZOLAM 2 MG/2 ML VIAL IV PRN; -ONDANSETRON 4 MG/2 ML VIAL IVP ONE; -Pre Op ABX Message 1 EACH MISC MISCELLANE ONE
[2021-06-29] MEDS ORDERED: SODIUM CHLORIDE 0.9% 1,000 ML IV ONE (09:00)
[2021-06-29] MEDS ORDERED: VANCOMYCIN 1,000 MG in SODIUM CHLORIDE 0.9% 250 ML IVPB ONE (09:00)
[2021-06-29] MEDS: SODIUM CHLORIDE 0.9% 1,000 ML IV SCH (09:27)
[2021-06-29] MEDS ORDERED: VANCOMYCIN 1,000 MG VIAL IVPB ONE (09:28)
[2021-06-29] MEDS ORDERED: GLYCOPYRROLATE 0.2 MG/ML 2 ML VIAL ONE (11:53)
[2021-06-29] MEDS ORDERED: MIDAZOLAM 2 MG/2 ML VIAL ONE (11:53)
[2021-06-29] MEDS ORDERED: HEPARIN SODIUM,PORCINE 10,000 UNIT/ML 1 ML VIAL ONE (11:53)
[2021-06-29] MEDS ORDERED: fentaNYL (PF) 50 MCG/ML 2 ML AMP ONE (11:53)
[2021-06-29] MEDS ORDERED: PHENYLEPHRINE-0.9% NACL SYG 1,000 MCG/10 ML SYRINGE ONE (11:53)
[2021-06-29] MEDS ORDERED: SUCCINYLCHOLINE CHLORIDE 100 MG/5 ML SYR IV ONE (11:53)
[2021-06-29] MEDS ORDERED: PROPOFOL 10 MG/ML 20 ML VIAL IV ONE (11:53)
[2021-06-29] MEDS ORDERED: NEOSTIGMINE 1 MG/ML 10 ML VIAL ONE (11:53)
[2021-06-29] MEDS ORDERED: ROCURONIUM 10 MG/ML (5 ML VIAL) IV ONE (11:53)
[2021-06-29] MEDS ORDERED: LIDOCAINE URO-JET JELLY 2% 5 ML KIT ONE (12:26)
[2021-06-29] MEDS ORDERED: methylPREDNISolone SOD SUCCI 125 MG/2 ML VIAL ONE (12:36)
[2021-06-29] MEDS ORDERED: LIDOCAINE 1% INJ 10MG/ML (20 ML MDV) SQ ONE (13:00)
[2021-06-29] MEDS: IOPAMIDOL-370 50ML BTL INJ ONE ×2 (13:00→15:12)
[2021-06-29] MEDS ORDERED: HEPARIN SOD,PORK IN 0.45% NACL 25,000 UNIT in 0.45% NACL 1 250ML.BAG IV ONE (13:02)
[2021-06-29] MEDS ORDERED: ACETAMINOPHEN TAB 325 MG TAB PO PRN (15:48)
--- NOTE | 2021-06-29 16:00 | P.EPPROC ---
- EP Procedure Note Electrophysiology Procedure Note: PROCEDURE A. fib ablation, persistent DIAGNOSIS Atrial fibrillation, symptomatic, refractory to therapy Mild cardio myopathy RESULT No left atrial appendage mass seen on intracardiac echo, left ventricular ejection fraction of 50% Successful A. fib ablation/pulmonary vein isolation of all veins using cryo- ablation Complete entrance block in all 4 veins confirmed No evidence for phrenic nerve injury Left atrial roof line Left atrial septal ablation Esophageal deflection YES Electrical cardioversion with a synchronized shock across the chest YES Residual atrial tachycardia with a concentric activation in the coronary sinus poles Cycle length 335 ms, variable CS morphology but constant cycle length PROCEDURE DETAILS Patient was brought to the EP lab in a fasting state after obtaining written informed consent. Procedure performed under general anesthesia Pacemaker was interrogated lead impedance is stable. Pace very programmed to DDD mode at 50 beats a minute with VIP more turned on. Nevertheless he was RV pacing Esophagus was intubated. Esophageal temperature monitoring with circa catheter. Esophageal deflection with an endoscope to avoid hypothermia of the esophagus. After initial muscle relaxant use, muscle relaxants were not given thereafter in order to assess phrenic nerve during procedure. Patient prepped and draped as per protocol Cryo ablation-set up with standard preparation of the cryoablation tools done. Femoral Venous access obtained on the right and left groins and sheaths placed Diagnostic catheters for the high right atrium, phrenic nerve stimulation and pacing, His bundle, coronary sinus placed Intracardiac echo catheter placed. Long sheath placed in the right atrium Left and right transseptal catheterization performed under intracardiac echo guidance. Intravenous heparin with aCT above 300 Later, catheter positioning and balloon positioning in the left atrium and pulmonary veins, under intracardiac echo guidance Diagnostic EP study with coronary sinus pacing and recording Baseline measurements: Paced QRS Transseptal catheterization performed RA pressure 15/7/11 LA pressure 38/12/21 Transseptal catheterization performed with standard sheath. The cryoablation sheath was then placed with an over the wire exchange without any acute complications. The cryoablation balloon was placed in the office of each pulmonary vein and all 4 pulmonary veins were isolated. IV dye was injected to confirm occlusion. Goal: achieve complete occlusion of the pulmonary vein, achieve -30 degrees C at 30 seconds and achieve -40 degrees C at 60 seconds and a time to effect of less than 60 seconds. If not, the balloon was repositioned to obtain this result After completion of Cryoblation with durations from 180-240 seconds, entrance block was confirmed with the Attain circular catheter in a roving fashion around the antrum of the pulmonary veins Phrenic nerve pacing was performed from the SVC, right innominate vein area and diaphragm voltage was monitored. Diaphragmatic contractions were also monitored manually for strength of contraction. At the end of the procedure the Achieve catheter was once again used to check for entrance block Linear ablation in the left atrial roof. Prior balloon was advanced along the left atrial roof and a complete overlapping where block was made Left atrial septal ablation performed with the achieve catheter cannulating the inferior branch of the superior vein to achieve good septal contact Phrenic nerve stimulation was performed to confirm diaphragmatic stimulation the end of the procedure Cine fluoroscopy was performed at the very end of the procedure to confirm movement of both diaphragms with inspiration and expiration At the end of the procedure the patient was extubated Venous sheaths were removed and hemostasis assured with a closure device Pacemaker interrogated. Lead impedance is stable. DDDR 7215 bpm VIP more turned on PROCEDURES PERFORMED Diagnostic EP study CS pacing and recording Left and right transseptal catheterization Catheter the mapping of the tachycardia Intracardiac echocardiography Pulmonary vein isolation with transseptal , 18000 Left atrial roof line, +[id number] Linear ablation, septum of left atrium, +[id number] Electrical cardioversion with a synchronized shock across the chest 22769 Pacemaker interrogation with reprogramming
--- NOTE | 2021-06-29 16:01 | P.EPPROC ---
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 Proceed with an upgrade to a biventricular pacemaker
[2021-06-29] MEDS ORDERED: IV FLUID CONTINUATION 1,000 ML IV ONE ×2 (16:09)
--- NOTE | 2021-06-29 16:13 | P.EPPROC ---
- EP Procedure Note Electrophysiology Procedure Note: Diagnosis Loss of consciousness Baseline twelve-lead EKG Sinus rhythm normal IA narrow QRS normal ST segments Normal QT interval No delta waves no epsilon waves, LVH noted Tilt table test for protocol Baseline blood pressure 172/86 millimeters his mercury Baseline heart rate 50 beats a minute Patient was tilted upright at an angle of 70 per protocol There was a progressive slow decline in blood pressure) pressure recorded 123/70 mmHg heart rate in the 60s No syncope noted Impression Twelve-lead EKG shows left hypertrophy Elevated Baseline blood pressure with evidence of a gradual decline with upright tilting, without any increase in heart rate Dysautonomic response, asymptomatic
[2021-06-29] MEDS ORDERED: ACETAMINOPHEN IV (For NPO) 1,000 MG in EMPTY BAG 1 BAG IVPB ONE (16:15)
[2021-06-29 17:08] VITALS: RESP 18
--- NOTE | 2021-06-29 19:28 | P.PCN ---
Preoperative Diagnosis: Extended procedure This was a long procedure since the patient had a PICC into atrial septum with a very small fossa ovalis that was extremely difficult to cross Initially it was dilated within 8.5-Korean long sheath However this was not adequate to past the Carla sheath Therefore to advantage guidewires were placed in the left atrium across the interatrial septum Over each wire separately, the 8.5-Korean sheath along with his dilator was placed in the left atrium to dilate the puncture site And allow for passage of the 15-Korean sheath The coronary sinus catheter technique was also attempted but did not work Finally after gradual dilation with the Carla dilator, the sheath was placed in the left atrium without any complications Occlusion of the veins was difficult on account of cardiac rotation Each vein and is branch was segmentally occluded for complete isolation of all the 4 veins
[2021-06-29] MEDS: carvediloL 12.5 MG TAB PO SCH (21:25)
[2021-06-30] MEDS: SODIUM CHLORIDE 0.9% 1,000 ML IV SCH (05:31)
[2021-06-30] MEDS ORDERED: RIVAROXABAN 20 MG TAB PO SCH (08:00)
[2021-06-30 08:01] VITALS: BP 124/72; PULSE 83; TEMP 98.1
[2021-06-30] MEDS ORDERED: ASPIRIN 81 MG PO SCH (09:00)
[2021-06-30] MEDS ORDERED: FUROSEMIDE 20 MG TAB PO SCH (09:00)
[2021-06-30] MEDS ORDERED: ATORVASTATIN 20 MG TAB PO SCH (09:00)
[2021-06-30] MEDS ORDERED: lisinopriL 20 MG TAB PO SCH (09:00)
[2021-06-30] MEDS: carvediloL 12.5 MG TAB PO SCH (09:41)
[2021-06-30 11:47] LABS: ALT 15 U/L (10-49); AST 30 U/L (14-35); African American GFR (CKD) 65.3 (60.0-200.0); Albumin 4.1 g/dL (3.8-4.9); Albumin/Globulin Ratio 1.41 (1.60-3.17); Alkaline Phosphatase 101 U/L (41-126); BUN/Creat Ratio 22.92 Ratio (12.00-20.00); Blood Urea Nitrogen 27.5 mg/dL (9.0-27.0); Calcium 8.9 mg/dL (8.7-10.3); Carbon Dioxide 21.9 mmol/L (20.0-27.5); Chloride 100 mmol/L (96-109); Globulin 2.9 g/dL (1.6-3.3); Glucose 233 mg/dL (70-110); Non-African American GFR(CKD) 56.4 (60.0-200.0); Potassium 4.2 mmol/L (3.5-5.5); Sodium 137 mmol/L (135-145)
[2021-06-30 12:06] LABS: Chol/HDL Ratio 2.64 Ratio
--- NOTE | 2021-07-01 15:36 | P.DS ---
Providers Attending physician: Kvng Haynes Primary care physician: Herman Pearce [facility] Course: Patient is doing well. No chest discomfort. Mild sore throat No palpitations no dizziness or lightheadedness On examination his groins of healed well Breath sounds are clear Heart sounds S1 and S2 are normal He is remained in sinus rhythm post ablation Labs reviewed Sodium 137, potassium 4.2 BUN 27 and creatinine 1.2 Hemoglobin A1c 6.2 LDL 86 TSH is 0.8 Impression Persistent atrial fibrillation with atrial tachycardia with variable morphology in the Coronary sinus poles with a constant cycle length of 335 ms Pulmonary vein isolation,, recovery of the pulmonary vein potentials in all 4 pulmonary veins Left atrial roof line Left atrial septal ablation 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 Pearce for evaluation of prediabetes Plan - Discharge Summary Discharge Rx Participant: No New Discharge Prescriptions: No Action RX: Famotidine 40 mg PO DAILY RX: Cholecalciferol (Vitamin D3) [Vitamin D3] 50 mcg PO DAILY RX: Atorvastatin [Lipitor] 20 mg PO Q48H RX: lisinopriL [Prinivil] 20 mg PO DAILY RX: Rivaroxaban [Xarelto] 20 mg PO DAILY RX: Furosemide [Lasix] 20 mg PO Q48H RX: Aspirin EC [Ecotrin Low Dose] 81 mg PO DAILY Carvedilol [Coreg] 25 mg PO BID Naproxen Sodium [Aleve] 220 mg PO ONCE PRN PRN Reason: Mild To Moderate Pain Discharge Medication List Cholecalciferol (Vitamin D3) [Vitamin D3] 50 mcg PO DAILY 07/17/17 [History] Famotidine 40 mg PO DAILY 07/17/17 [History] Atorvastatin [Lipitor] 20 mg PO Q48H 05/30/18 [History] Aspirin EC [Ecotrin Low Dose] 81 mg PO DAILY 10/21/20 [History] Rivaroxaban [Xarelto] 20 mg PO DAILY 10/21/20 [History] lisinopriL [Prinivil] 20 mg PO DAILY 10/21/20 [History] Carvedilol [Coreg] 25 mg PO BID 06/25/21 [History] Furosemide [Lasix] 20 mg PO Q48H 06/25/21 [History] Naproxen Sodium [Aleve] 220 mg PO ONCE PRN 06/29/21 [History] Follow up Appointment(s)/Referral(s): Kvng Haynes MD [STAFF PHYSICIAN] - 1 Week (will call pt to schedule ) Patient Instructions/Handouts: Cardiac Ablation (DC) Discharge Disposition: HOME SELF-CARE
== END 2021-06-30 10:25 | disposition home or self-care (01) ==
LOC: CATHEP 08:40 → 6NMEDSUR 15:20 → CATHEP 06-30 10:25
PROVIDERS: ATTEND Internal Medicine Clinical Cardiac Electrophysiology
DX: R00.2 Palpitations (principal); I44.7 Left bundle-branch block, unspecified; I49.5 Sick sinus syndrome; Z95.2 Presence of prosthetic heart valve; I42.0 Dilated cardiomyopathy; I45.3 Trifascicular block; E78.5 Hyperlipidemia, unspecified; Z72.0 Tobacco use; Z79.01 Long term (current) use of anticoagulants; Z79.82 Long term (current) use of aspirin; Z79.811 Long term (current) use of aromatase inhibitors; Z95.0 Presence of cardiac pacemaker
CPT/HCPCS: 93609; 93656; 93657; 80061; 80053; 84443; 83721; 83036; C1894 ×2; C1769 ×5; C1760; C1730 ×2; C1759; C1893; C1733; C1766; J2250; J3370; J1644 ×2; J2710; J2930; J2001; J3010; J2370; J0330; J2704; Q9967; 93620

== ENCOUNTER 2021-08-13 06:04 | Day surgery (SDC) | payer MEDICARE, OTHER ==
[2021-08-12 13:09] VITALS: BMI 25.8
[~2021-08-13 06:04] MED LIST changes: +LACTATED RINGERS 1,000 ML IV SCH; -LIDOCAINE 1% INJ 10MG/ML (20 ML MDV) ONE; +MIDAZOLAM 2 MG/2 ML VIAL IV PRN; +SODIUM CHLORIDE 0.9% 1,000 ML IV SCH
[2021-08-13] MEDS ORDERED: SODIUM CHLORIDE 0.9% 500 ML 500 ML IV ONE (06:23)
[2021-08-13 06:47] VITALS: BP 118/81; PULSE 98; RESP 16; TEMP 98.5
[2021-08-13] MEDS ORDERED: HYDROmorphone 0.5 MG/0.5 ML SYRINGE IVP PRN (07:00)
[2021-08-13 07:01] LABS: Calcium 8.8 mg/dL (8.4-10.2); Magnesium 2.1 mg/dL (1.6-2.3); Potassium 4.1 mmol/L (3.5-5.1)
[2021-08-13 07:50] LABS: Basophils % (A) 0 %; Eosinophils # (A) 0.2 k/uL (0-0.7); Eosinophils % (A) 3 %; HCT 39.1 % (39.0-53.0); Lymphocytes # (A) 1.3 k/uL (1.0-4.8); Lymphocytes % (A) 16 %; MCH 33.8 pg (25.0-35.0); MCHC 33.3 g/dL (31.0-37.0); MCV 101.6 fL (80.0-100.0); Macrocytosis Slight; Mean Platelet Volume 8.4; Monocytes # (A) 0.6 k/uL (0-1.0); Monocytes % (A) 7 %; Neutrophils # (A) 5.5 k/uL (1.3-7.7); Neutrophils % (A) 71 %; Platelet Count 247 k/uL (150-450); RBC 3.85 m/uL (4.30-5.90); RDW 13.8 % (11.5-15.5); WBC 7.7 k/uL (3.8-10.6)
--- NOTE | 2021-08-13 08:03 | XR ---
EXAMINATION TYPE: XR chest 1V DATE OF EXAM: 08/13/2021 HISTORY: Shortness of breath. COMPARISON: 10/21/2020 TECHNIQUE: Single view of the chest is submitted. FINDINGS: Demonstrated are scattered senescent parenchymal change. There is no evidence for focal infiltrate. There is cardiomegaly with mild pulmonary venous engorgement. No evidence for overt failure. Hilar and mediastinal structures are within normal limits. Degenerative changes are seen of the dorsal spine. IMPRESSION: 1. No evidence for pneumonia.There is cardiomegaly with mild pulmonary venous engorgement. No eviden ce for overt failure.
[2021-08-13 08:23] LABS: Albumin 3.7 g/dL (3.5-5.0); Calcium 8.7 mg/dL (8.4-10.2); Potassium 4.2 mmol/L (3.5-5.1); Total Bilirubin 1.2 mg/dL (0.2-1.3); Total Protein 7.1 g/dL (6.3-8.2)
[2021-08-13 09:30] LABS: C Reactive Protein 0.7 mg/dL (<1.0)
--- NOTE | 2021-08-14 18:14 | P.HPCAR ---
History of Present Illness Patient was admitted for evaluation and management of feeling tired fatigue lack of energy and atrial fibrillation He has a dual-chamber pacemaker implanted However he turned out to be covid positive The device was interrogated He has a [employer] medical dual-chamber pacemaker He was in sinus rhythm P waves 1.4 mV pacing impedance 310 ohms R waves 19 6 mV pacing impedance 630 ohms He was 100% paced in the right ventricle despite a VIP programming DDDR 70-115/min Chest x-ray was reviewed There was no evidence for pneumonia Very mild pulmonary venous engorgement is noted no effusion Normal white count Hemoglobin 13 Sodium 140 potassium 4.2 BUN was 31 and 1.5 Gen. function normal Magnesium normal C-reactive protein 0.7 atone and therefore 06 TSH 6.0 Detailed discussion the patient Impression Pacemaker dependent state 100*V pacing It is quite likely that his symptoms are secondary to congestive heart failure and RV pacing Worsening renal function Suggest Reduce sotalol 40 g twice daily Continue atorvastatin, continue baby aspirin Continue spironolactone Continue Xarelto Continue carvedilol I will schedule for an upgrade to a biventricular pacemaker Prior to that a 2-D echo and Doppler study will be performed and has been scheduled to the office Pacemaker reprogramming Past Medical History Past Medical History: Atrial Fibrillation, Cancer, GERD/Reflux, Hypertension, Osteoarthritis (OA) Additional Past Medical History / Comment(s): 07-29-17 blood clot upper extremity and neck. hx basal cell skin cancer and melanoma., recent skin cancer removed from right leg-pt states healing, [place], tinnitus left ear., lower back and neck pain (sees chiropracter), states tired, no energy, dizzy at times., See Cardiology H &P. History of Any Multi-Drug Resistant Organisms: None Reported Past Surgical History: Cardiac Ablation, Cholecystectomy, Heart Catheterization, Hernia Repair, Orthopedic Surgery, Pacemaker, Prostate Surgery Additional Past Surgical History / Comment(s): lt shoulder surg, mitral valve repair in 2012., cataracts. Past Anesthesia/Blood Transfusion Reactions: No Reported Reaction Additional Past Anesthesia/Blood Transfusion Reaction / Comment(s): no hx blood transfusion Type of Cardiac Device: Permanent Pacemaker Device Placement Date:: 07-25-17 [facility] Past Psychological History: No Psychological Hx Reported Smoking Status: Former smoker Past Alcohol Use History: None Reported Additional Past Alcohol Use History / Comment(s): quit smoking 09-27-80, smoked approx 10 yrs <1ppd Past Drug Use History: None Reported - Past Family History Mother Family Medical History: Cancer Father Family Medical History: Cancer Results 08/13/21 07:37 08/13/21 07:37 08/13/21 07:37 08/13/21 07:37
== END 2021-08-13 08:26 | disposition home or self-care (01) ==
LOC: CATHEP 06:04
PROVIDERS: ATTEND Internal Medicine Clinical Cardiac Electrophysiology
DX: I48.91 Unspecified atrial fibrillation (principal); Z53.8 Procedure and treatment not carried out for other reasons; U07.1 COVID-19; I50.9 Heart failure, unspecified; I45.3 Trifascicular block; I47.1 Supraventricular tachycardia; I42.8 Other cardiomyopathies; E78.5 Hyperlipidemia, unspecified; Z87.891 Personal history of nicotine dependence; Z88.1 Allergy status to other antibiotic agents; Z88.0 Allergy status to penicillin; Z79.82 Long term (current) use of aspirin; Z95.0 Presence of cardiac pacemaker; K21.9 Gastro-esophageal reflux disease without esophagitis; M19.90 Unspecified osteoarthritis, unspecified site; Z85.828 Personal history of other malignant neoplasm of skin; Z85.820 Personal history of malignant melanoma of skin; H93.12 Tinnitus, left ear; M54.50 Low back pain, unspecified; M54.2 Cervicalgia; Z90.49 Acquired absence of other specified parts of digestive tract; Z95.2 Presence of prosthetic heart valve; Z98.890 Other specified postprocedural states; Z79.01 Long term (current) use of anticoagulants; Z79.899 Other long term (current) drug therapy; Z80.9 Family history of malignant neoplasm, unspecified
CPT/HCPCS: 71045; 80048; 80053; 83735; 84145; 84443; 85025; 86140; 87635

== ENCOUNTER 2021-08-30 09:50 | Day surgery (SDC) | payer MEDICARE, OTHER ==
[2021-08-26 14:13] VITALS: BMI 25.9
[~2021-08-30 09:50] MED LIST changes: -LACTATED RINGERS 1,000 ML IV SCH; -MIDAZOLAM 2 MG/2 ML VIAL IV PRN; -SODIUM CHLORIDE 0.9% 1,000 ML IV SCH; +VANCOMYCIN 1,250 MG in SODIUM CHLORIDE 0.9% 250 ML IVPB ONE; +VANCOMYCIN IV PER PHARMACY 1 EACH MISC MISCELLANE PRN
[2021-08-30] MEDS: SODIUM CHLORIDE 0.9% 1,000 ML IV SCH (10:17)
[2021-08-30] MEDS ORDERED: VANCOMYCIN 1,000 MG in SODIUM CHLORIDE 0.9% IRRIGATIO 1,000 ML IRRIGATION ONE (10:24)
[2021-08-30] MEDS ORDERED: NAPROXEN 250 MG TAB PO PRN (10:54)
[2021-08-30] MEDS ORDERED: NITROGLYCERIN SL TABS 0.4 MG TAB SUBLINGUAL PRN (10:59)
[2021-08-30] MEDS ORDERED: ALPRAZolam 0.5 MG TAB PO PRN (10:59)
[2021-08-30] MEDS ORDERED: ALPRAZolam 0.25 MG TAB PO PRN (10:59)
[2021-08-30] MEDS ORDERED: FUROSEMIDE 10 MG/ML 4 ML VIAL ONE (11:12)
[2021-08-30] MEDS ORDERED: FUROSEMIDE 10 MG/ML 2 ML VIAL IV ONE (11:15)
[2021-08-30] MEDS: carvediloL 12.5 MG TAB PO SCH (17:44)
--- NOTE | 2021-08-30 18:06 | P.HPCAR ---
History of Present Illness This is Dr. Haynes dictating an H/P on this patient The patient was interviewed and examined IMPRESSION / ASSESSMENT: Progressive heart failure symptoms despite treatment for atrial fibrillation and maintenance of sinus rhythm On guidelines are for medical treatment for heart failure Worsening symptoms requiring higher doses of diuretics Status post dual-chamber pacemaker for bradycardia in the past with increasing RV pacing percentage Recent 100% RV pacing in the last several months History of severe MR secondary to mitral valve prolapse status post repair in 2012 History of tobacco use in the past Recent 2-D echo shows severe LV dysfunction with anterior wall akinesis PLAN: Evaluate for causes of cardio myopathy. Discussed Dr. Madelaine Riley will admit the patient for heart failure management and coronary angiography Diuretic therapy Rule out epicardial coronary artery disease as the etiology for progressive HF symptoms and reduced LV systolic function HPI Patient presenting with increasing shortness of breath despite medical treatment for CHF And despite successful maintenance of sinus rhythm status post recent redo A. fib ablation 100% RV pacing, status post dual-chamber pacemaker for Sick Sinus Syndrome Hold xarelto ROS: No fever chills or rigors, no cough, phlegm or expectoration, no nausea, vomiting or diarrhea, no hematuria, dysuria, no musculoskeletal complaints, no strokes or seizures, no skin lesions. EXAMINATION: Pulse rate in the 70s afebrile Blood pressure 131/89 112/62 mmHg Pulse ox 96% on room air Mild hepatojugular reflux No lower extremity edema Soft systolic murmur, no S3 gallop Lungs are clear REVIEW OF LABS, ECG & MEDICAL DATA hemoglobin 13, white count normal Sodium 140, potassium 4.2, BUN 30 and creatinine 1.44 Hemoglobin A1c 6.2 Normal liver function tests TSH 6.0 LDL 86, HDL 58, total aerosol 153 and triglycerides 46 Physical Exam Vitals: Vital Signs Temp Pulse Resp BP Pulse Ox 08/30/21 12:00 95 16 112/62 95 08/30/21 10:26 97.7 F 79 16 131/89 96 Intake and Output 08/30/21 08/30/21 08/30/21 06:59 14:59 22:59 Other: Weight 77.5 kg Past Medical History Past Medical History: Atrial Fibrillation, Cancer, GERD/Reflux, Hypertension, Osteoarthritis (OA) Additional Past Medical History / Comment(s): 2--18 blood clot upper extremity and neck. hx basal cell skin cancer and melanoma., recent skin cancer removed from right leg-pt states healing, [place], tinnitus left ear., lower back and neck pain (sees chiropractor), states tired, no energy, dizzy at times., See Dr. Haynes H &P, SOB much improved, recent chest xray this past Monday @Dr. Pearce's History of Any Multi-Drug Resistant Organisms: None Reported Past Surgical History: Cardiac Ablation, Cholecystectomy, Heart Catheterization, Hernia Repair, Orthopedic Surgery, Pacemaker, Prostate Surgery Additional Past Surgical History / Comment(s): lt shoulder surg, mitral valve repair in 2012., cataracts. Past Anesthesia/Blood Transfusion Reactions: No Reported Reaction Additional Past Anesthesia/Blood Transfusion Reaction / Comment(s): no hx blood transfusion Type of Cardiac Device: Permanent Pacemaker Device Placement Date:: 07-25-17 [facility] Smoking Status: Former smoker - Past Family History Mother Family Medical History: Cancer Father Family Medical History: Cancer Physical Examination Vital Signs Temp Pulse Resp BP Pulse Ox 08/30/21 12:00 95 16 112/62 95 08/30/21 10:26 97.7 F 79 16 131/89 96 Intake and Output 08/30/21 08/30/21 08/30/21 06:59 14:59 22:59 Other: Weight 77.5 kg Results Current Medications Generic Name Dose Route Start Last Admin Trade Name Freq PRN Reason Stop Dose Admin Alprazolam 0.25 mg 08/30/21 10:59 Alprazolam 0.25 Mg Tab PO Q6HR PRN Mild Anxiety Alprazolam 0.5 mg 08/30/21 10:59 Alprazolam 0.5 Mg Tab PO Q6HR PRN Moderate Anxiety Aspirin 81 mg 08/31/21 09:00 Aspirin 81 Mg PO DAILY AJAY Atorvastatin Calcium 20 mg 09/01/21 21:00 Atorvastatin 20 Mg Tab PO Q48H AJAY Carvedilol 12.5 mg 08/30/21 17:30 08/30/21 17:44 Carvedilol 12.5 Mg Tab PO 12.5 mg AC-BID AJAY Administration Cholecalciferol 50 mcg 08/31/21 09:00 Cholecalciferol 25 Mcg (1000 Iu) Tablet PO DAILY AJAY Famotidine 40 mg 08/31/21 09:00 Famotidine 20 Mg Tab PO DAILY AJAY Furosemide 40 mg 08/31/21 09:00 Furosemide 40 Mg Tab PO DAILY AJAY Sodium Chloride 1,000 mls @ 20 mls/hr 08/30/21 05:42 08/30/21 10:17 Saline 0.9% IV 09/29/21 05:43 0 mls .Q24H AJAY Administration Sodium Chloride 1,000 mls @ 50 mls/hr 08/30/21 23:55 Saline 0.9% IV .Q20H AJAY Heparin Sodium (Porcine) 10, 1,001 mls @ 999 mls/hr 08/31/21 07:00 000 unit/ Sodium Chloride IRRIGATION 08/31/21 23:00 ONCE PRN INTRA-OP Heparin Sodium (Porcine) 2,500 250.5 mls @ 250 mls/hr 08/31/21 07:00 unit/ Sodium Chloride IRRIGATION 08/31/21 23:00 ONCE PRN INTRA-OP Nitroglycerin 0.4 mg 08/30/21 10:59 Nitroglycerin Sl Tabs 0.4 Mg Tab SUBLINGUAL Q5M PRN Chest Pain Sotalol HCl 40 mg 08/30/21 21:00 Sotalol 80 Mg Tab PO BID AJAY Spironolactone 25 mg 08/31/21 09:00 Spironolactone 25 Mg Tab PO DAILY AJAY Intake and Output 08/30/21 08/30/21 08/30/21 06:59 14:59 22:59 Other: Weight 77.5 kg Patient Weight 08/31/21 06:59 Weight 77.5 kg
[2021-08-30] MEDS ORDERED: SOTALOL 80 MG TAB PO SCH (21:00)
[2021-08-30] MEDS ORDERED: SODIUM CHLORIDE 0.9% 1,000 ML IV SCH (23:55)
[2021-08-31 06:04] LABS: Glucose,Whole Blood 116 mg/dL (75-99)
[2021-08-31] MEDS: carvediloL 12.5 MG TAB PO SCH ×2 (06:26→17:09)
[2021-08-31] MEDS: SODIUM CHLORIDE 0.9% 1,000 ML IV SCH (06:29)
[2021-08-31] MEDS ORDERED: HEPARIN SODIUM,PORCINE 10,000 UNIT in SODIUM CHLORIDE 0.9% 1,000 ML IRRIGATION PRN (07:00)
[2021-08-31] MEDS ORDERED: HEPARIN SODIUM,PORCINE 2,500 UNIT in SODIUM CHLORIDE 0.9% 250 ML IRRIGATION PRN (07:00)
[2021-08-31] MEDS ORDERED: CHOLECALCIFEROL 25 MCG (1000 IU) TABLET PO SCH (09:00)
[2021-08-31] MEDS ORDERED: SPIRONOLACTONE 25 MG TAB PO SCH (09:00)
[2021-08-31] MEDS ORDERED: FAMOTIDINE 20 MG TAB PO SCH (09:00)
[2021-08-31] MEDS ORDERED: FUROSEMIDE 40 MG TAB PO SCH (09:00)
[2021-08-31] MEDS ORDERED: ASPIRIN 81 MG PO SCH (09:00)
[2021-08-31 09:30] VITALS: RESP 20
[2021-08-31] MEDS ORDERED: LIDOCAINE 1% INJ 10MG/ML (20 ML MDV) ONE (10:36)
[2021-08-31] MEDS ORDERED: HEPARIN SODIUM 1,000 UN/ML (10ML VL) ONE (10:37)
[2021-08-31] MEDS ORDERED: fentaNYL (PF) 50 MCG/ML 2 ML AMP ONE (10:37)
[2021-08-31] MEDS ORDERED: VERAPAMIL 2.5 MG/ML 2 ML AMP ONE (10:37)
[2021-08-31] MEDS ORDERED: IV FLUID CONTINUATION 600 ML IV ONE (10:39)
[2021-08-31] MEDS ORDERED: fentaNYL (PF) 50 MCG/ML 2 ML AMP IV ONE (11:10)
[2021-08-31] MEDS ORDERED: LIDOCAINE 1% INJ 10MG/ML (20 ML MDV) SQ ONE (11:12)
[2021-08-31] MEDS ORDERED: VERAPAMIL SYRINGE (5 MG/10 ML) INTRAARTER ONE (11:14)
[2021-08-31] MEDS ORDERED: IOPAMIDOL-370 125ML BTL INJ ONE (11:22)
[2021-08-31] MEDS ORDERED: RX INFO: IV CONTRAST WAS GIVEN 1 EACH MISC MISCELLANE PRN (11:33)
--- NOTE | 2021-08-31 11:39 | P.CARDCATH ---
Date of Procedure: 08/31/21 Description of Procedure: Cardiac Catheterization: The patient is an 81-year-old male with known history of atrial fibrillation, post mitral valve repair and cardiomyopathy who has been complaining of progressive dyspnea. His echocardiogram showed worsening of his LV function with segmental wall motion abnormalities. He was evaluated by Dr. Haynes. Recommendations were made regarding cardiac catheterization, the risks and the complications were discussed with the patient who is in full understanding and agreement. Procedure Description: Patient was brought to cathode washer in fasting semi-sedated state after receiving Fentanyl and Benadryl achieiving moderate conscious sedated state. Using Xylocaine Anesthesia and Seldinger technique, a 6-Serbian sheath was introduced in the right radial artery . Subsequently, selective coronary angiography performed using a 5-Serbian 3.5 bend Марина catheter. Multiple views of the coronary artery including hemiaxial views were obtained. The right Марина catheter was used to cross the aortic valve and LVEDP was calculated. Following that, catheter and sheath were removed. Hemostasis was obtained with deployment of TR band . There was no immediate complication. Patient was returned to room in stable condition. Of note, the patient received a total of 4000 units of intravenous heparin as well as intra-arterial verapamil. There was no immediate complications. Findings: Left main: This is a short sized vessel, bifurcating LAD and left circumflex, le ft main has no high-grade stenosis LAD: This is a large vessel, reaching to the apex, giving rise to large diagonal branch. The LAD and its branches have no evidence of high-grade stenosis. Left circumflex: This is a nondominant large size vessel, giving rise to a large obtuse marginal branch. The obtuse marginal branch has 10-20% plaque. RCA: This is a dominant large sized vessel, bifurcating into PDA and PLV, the RCA has no obstructive disease. [Left] Ventriculogram: Was not performed Hemodynamics: There was no gradient across the aortic valve, LVEDP 16-20 mmHg Conclusion: 1. Mild disease in the circumflex 2. Right dominance Recommendations: I see no evidence of obstructive disease to explain his cardiomyopathy. Patient will be evaluated for upgrading his device to biventricular pacing. The findings and recommendations were discussed with the patient and his family, they are in full understanding and agreement. Duration of sedation is 12 minutes.
[2021-08-31] MEDS ORDERED: SODIUM CHLORIDE 0.9% 1,000 ML IV SCH (11:45)
[2021-08-31 16:04] VITALS: BP 97/65; PULSE 99; TEMP 97.8
[2021-09-01] MEDS ORDERED: ATORVASTATIN 20 MG TAB PO SCH (21:00)
== END 2021-08-31 19:05 | disposition home or self-care (01) ==
LOC: CATHEP 09:50 → 3SCARD 10:52 → CATHEP 08-31 19:05
PROVIDERS: ATTEND Internal Medicine Clinical Cardiac Electrophysiology
DX: I25.10 Atherosclerotic heart disease of native coronary artery without angina pectoris (principal); I11.0 Hypertensive heart disease with heart failure; I50.9 Heart failure, unspecified; I48.0 Paroxysmal atrial fibrillation; I49.5 Sick sinus syndrome; I45.3 Trifascicular block; I47.1 Supraventricular tachycardia; K21.9 Gastro-esophageal reflux disease without esophagitis; Z20.822 Contact with and (suspected) exposure to COVID-19; I42.9 Cardiomyopathy, unspecified; Z87.891 Personal history of nicotine dependence; M19.90 Unspecified osteoarthritis, unspecified site; Z86.718 Personal history of other venous thrombosis and embolism; H91.90 Unspecified hearing loss, unspecified ear; Z85.828 Personal history of other malignant neoplasm of skin; H93.12 Tinnitus, left ear; Z85.821 Personal history of Merkel cell carcinoma; Z90.49 Acquired absence of other specified parts of digestive tract; Z98.890 Other specified postprocedural states; Z98.49 Cataract extraction status, unspecified eye; Z79.82 Long term (current) use of aspirin; Z79.01 Long term (current) use of anticoagulants; Z79.899 Other long term (current) drug therapy; Z88.0 Allergy status to penicillin; Z88.8 Allergy status to other drugs, medicaments and biological substances
CPT/HCPCS: 93458; 87635; C1894; C1769; J1940; J2001; J3010; J1644; Q9967

== ENCOUNTER 2021-09-23 08:51 | Day surgery (SDC) | payer MEDICARE, OTHER ==
[2021-09-21 16:03] VITALS: BMI 24.0
[~2021-09-23 08:51] MED LIST changes: +DAPTOmycin 500 MG in SODIUM CHLORIDE 0.9% 50 ML IVPB PRN; +GENTAMICIN 120 MG in SODIUM CHLORIDE 0.9% 100 ML IVPB PRN; +LACTATED RINGERS 1,000 ML IV SCH; +LIDOCAINE 1% (10MG/ML) FOR IV START INTRADERMA PRN; +SODIUM CHLORIDE 0.9% 1,000 ML IV SCH; -VANCOMYCIN 1,250 MG in SODIUM CHLORIDE 0.9% 250 ML IVPB ONE; -VANCOMYCIN IV PER PHARMACY 1 EACH MISC MISCELLANE PRN
[2021-09-23] MEDS ORDERED: SODIUM CHLORIDE 0.9% 1,000 ML IV ONE (09:01)
[2021-09-23 10:14] LABS: Basophils % (A) 0 %; Eosinophils # (A) 0.2 k/uL (0-0.7); Eosinophils % (A) 3 %; HCT 42.9 % (39.0-53.0); HGB 14.2 gm/dL (13.0-17.5); Lymphocytes # (A) 1.8 k/uL (1.0-4.8); Lymphocytes % (A) 26 %; MCH 32.7 pg (25.0-35.0); MCHC 33.1 g/dL (31.0-37.0); MCV 98.6 fL (80.0-100.0); Mean Platelet Volume 8.2; Monocytes # (A) 0.5 k/uL (0-1.0); Monocytes % (A) 7 %; Neutrophils # (A) 4.1 k/uL (1.3-7.7); Neutrophils % (A) 61 %; Platelet Count 261 k/uL (150-450); RBC 4.35 m/uL (4.30-5.90); RDW 13.2 % (11.5-15.5); WBC 6.7 k/uL (3.8-10.6)
[2021-09-23 10:30] LABS: Calcium 9.2 mg/dL (8.4-10.2)
[2021-09-23] MEDS ORDERED: LIDOCAINE 1% INJ 10MG/ML (20 ML MDV) ONE ×3 (11:01→11:06)
[2021-09-23] MEDS ORDERED: ceFAZolin 1,000 MG VIAL ONE (11:06)
[2021-09-23] MEDS ORDERED: PROPOFOL 10 MG/ML 20 ML VIAL IV ONE (11:06)
[2021-09-23] MEDS ORDERED: ePHEDrine 50 MG/ML 1 ML VIAL ONE (11:06)
[2021-09-23] MEDS ORDERED: MIDAZOLAM 2 MG/2 ML VIAL ONE (11:06)
[2021-09-23] MEDS ORDERED: SUCCINYLCHOLINE CHLORIDE 100 MG/5 ML SYR IV ONE (11:06)
[2021-09-23] MEDS ORDERED: ATROPINE SULFATE 0.1 MG/ML 10ML SYRINGE ONE (11:06)
[2021-09-23] MEDS ORDERED: fentaNYL (PF) 50 MCG/ML 2 ML AMP ONE (11:06)
[2021-09-23] MEDS ORDERED: SODIUM CHLORIDE 0.9% 100 ML BAG ONE (11:06)
[2021-09-23] MEDS: IOPAMIDOL-250 50ML BTL IV ONE ×2 (11:38→11:40)
[2021-09-23] MEDS ORDERED: ATORVASTATIN 20 MG TAB PO SCH (11:45)
[2021-09-23] MEDS ORDERED: ceFAZolin 1,000 MG in SODIUM CHLORIDE 0.9% IRRIG BTL 250 ML IRRIGATION ONE (11:56)
--- NOTE | 2021-09-23 14:23 | P.EPPROC ---
- EP Procedure Note Electrophysiology Procedure Note: Diagnosis Bradycardia, pacemaker dependent, long AK interval Severe nonischemic coronary myopathy Severe heart failure Reduced LV systolic function Status post mitral valve repair Dual-chamber pacemaker in situ Occluded left subclavian/axillary junction with collaterals Procedure Upgrade to LV/ biventricular pacemaker implantation Details Patient was brought to the EP lab in a fasting state. Written informed consent was obtained prior to the procedure. Conscious sedation provided by anesthesia team IV antibiotics administered. Local anesthesia administered. A 4 cm incision made in the pectoral area. Subfascial pocket made. Venous access was difficult. The axillary vein access was obtained, intrathoracic with a micropuncture needle A guidewire was placed and I was able to successfully cross the very tight anus stenosis Following that serial dilators were used to dilate this junction starting with a 5-Azeri sheath up to a 12-Azeri sheath A 9-Azeri sheath was then placed in the central circulation Over the guidewire LV sheath/dilators system was placed in the right heart The dilator and wire were removed A coronary sinus catheter was placed in the right heart Coronary sinus was accessed However the angulation of the coronary sinus os made passage of the sheath into the coronary sinus difficult Multiple attempts were made and finally the sheath was placed in the mid CS Following that the dilator and guidewire were placed once again in the coronary sinus The advantage guidewire was then placed in the anterior vein Sheath was passed in the distal coronary sinus cross the valve Following that a [employer] medical LV lead was placed in the anterior vein No diaphragmatic stimulation is noted Thresholds were mildly elevated in the range of 2.0-2.5 V LV lead was very stable and connected to the new biventricular pacemaker generator The old generator was explanted for dual-chamber Chronic [employer] medical Atrial lead position the right atrial appendage remained stable following venoplasty Excellent thresholds of 0.5 V at 0.5 ms was obtained. P waves 2.6 mV, pacing impedance 330 ohms. Chronic RV lead position in the RV apex. Remained stable with venoplasty Threshold was excellent at 0.5 V at 0.5 ms, R waves 11.2 mV, pacing impedance 700 ohms LV lead positioned in the LV vein. The one-can threshold was 2.25 V at 0.5 ms pacing impedance 890 ohms Biventricular pacemaker device connected to the leads and placed in the subfascial pocket Patient tolerance the procedure well without acute complications Device is programmed to DDDR 50-130 bpm with LV offset of 20 ms
[2021-09-23] MEDS ORDERED: ACETAMINOPHEN TAB 325 MG TAB PO PRN (14:55)
[2021-09-23] MEDS ORDERED: FUROSEMIDE 40 MG TAB PO SCH (17:00)
--- NOTE | 2021-09-23 18:14 | XR ---
EXAMINATION TYPE: XR chest 1V portable DATE OF EXAM: 09/23/2021 3:32 PM COMPARISON:Chest radiographs from 08/13/2021 TECHNIQUE: XR chest 1V portable Frontal view of the chest. CLINICAL INDICATION:Male, 81 years old with history of Lead placement check; FINDINGS: Lungs/Pleura: There is no evidence of pleural effusion, focal consolidation, or pneumothorax. Pulmonary vascularity: Unremarkable. Heart/mediastinum: Cardiomediastinal silhouette is mildly enlarged for size. Post valvular repair ras nges. Three lead cardiac conduction device overlying the left hemithorax with lead tips projecting ov er the right ventricle, right atrium and coronary sinus. Musculoskeletal: No acute osseous pathology. Midline sternotomy wires are noted and stable. IMPRESSION: 1. Left cardiac conduction device with leads in appropriate position. 2. No acute cardiopulmonary disease/process.
--- NOTE | 2021-09-23 19:57 | P.DS ---
Providers Attending physician: Kvng Haynes Primary care physician: [facility] Course: Patient stable from a cardiovascular standpoint line vitals stable Mild hematoma noted minimal tenderness Plan Discharge home today Biventricular pacemaker is functioning normally Follow-up in one week in the device clinic Final impression Nonischemic cardio myopathy 100% RV pacing from dual-chamber pacemaker Sick Sinus Syndrome and AV node disease Status post upgrade to biventricular ICD History of paroxysmal atrial fibrillation Plan - Discharge Summary Discharge Rx Participant: No New Discharge Prescriptions: Continue Famotidine 40 mg PO DAILY Cholecalciferol (Vitamin D3) [Vitamin D3] 50 mcg PO DAILY Atorvastatin [Lipitor] 20 mg PO Q48H Rivaroxaban [Xarelto] 20 mg PO DAILY Furosemide [Lasix] 40 mg PO DAILY Aspirin EC [Ecotrin Low Dose] 81 mg PO DAILY Carvedilol [Coreg] 12.5 mg PO BID Naproxen Sodium [Aleve] 220 mg PO ONCE PRN PRN Reason: Mild To Moderate Pain Sotalol [Betapace] 40 mg PO BID Spironolactone 25 mg PO DAILY Discharge Medication List Cholecalciferol (Vitamin D3) [Vitamin D3] 50 mcg PO DAILY 07/17/17 [History] Famotidine 40 mg PO DAILY 07/17/17 [History] Atorvastatin [Lipitor] 20 mg PO Q48H 05/30/18 [History] Aspirin EC [Ecotrin Low Dose] 81 mg PO DAILY 10/21/20 [History] Rivaroxaban [Xarelto] 20 mg PO DAILY 10/21/20 [History] Carvedilol [Coreg] 12.5 mg PO BID 06/25/21 [History] Naproxen Sodium [Aleve] 220 mg PO ONCE PRN 06/29/21 [History] Sotalol [Betapace] 40 mg PO BID 08/12/21 [History] Spironolactone 25 mg PO DAILY 08/12/21 [History] Furosemide [Lasix] 40 mg PO DAILY 08/26/21 [History] Follow up Appointment(s)/Referral(s): Kvng Haynes MD [STAFF PHYSICIAN] - 1 Week (Device clinic follow-up in 1 week Follow-up Dr. Haynes in 4 weeks) Activity/Diet/Wound Care/Special Instructions: PATIENT EDUCATION MATERIAL Instructions following a heart rhythm device implant. 1. Keep dressing DRY for 5 DAYS. You may cover the area with Saran or Cling Wrap, prior to a shower. 2. The dressing will be removed in the Device Clinic at [facility]. Absorbable sutures were used to close the wound. 3. Avoid raising the left arm above the shoulder level. 4 week restriction 4. Avoid arm movements, like backscratching, rubbing the head, or pulling on a cord. 4 weeks restriction 5. Gentle range of motion movements of the shoulder, closest to the incision should be performed to avoid a frozen shoulder. (Pendulum exercises of the shoulder) 6. The opposite arm may be used freely. 7. Avoid driving for 7 days. 8. Avoid activities such as golfing, swimming, weed whacking, lifting more than 10 pounds weight, bowling, gymnastics and weight training/lifting. (6 weeks restriction) 9. Activities such as wood chopping with an axe, pull-ups in the gymnasium, power lifting, arc-welding, being close to home induction cooktops will always be a problem. 10. Arm sling is only a reminder not to raise the arm above the head. You do not need to keep the arm completely immobilized. Your free to move the arm and use it and for normal activities. In case of any problems, please call [facility], [place], @ [phone], Attention: Device Clinic Device clinic follow-up in 5 days Follow-up with primary dental specialist in 1 months Discharge Disposition: HOME SELF-CARE
[2021-09-23 20:10] VITALS: BP 135/78; PULSE 77; RESP 18; TEMP 99.7
[2021-09-23] MEDS ORDERED: SOTALOL 80 MG TAB PO SCH (21:00)
[2021-09-23] MEDS ORDERED: carvediloL 6.25 MG TAB PO SCH (21:00)
[2021-09-24] MEDS ORDERED: FUROSEMIDE 40 MG TAB PO SCH (09:00)
[2021-09-24] MEDS ORDERED: ASPIRIN 81 MG PO SCH (09:00)
[2021-09-24] MEDS ORDERED: SPIRONOLACTONE 25 MG TAB PO SCH (09:00)
== END 2021-09-23 21:25 | disposition home or self-care (01) ==
LOC: CATHEP 08:51 → 6NMEDSUR 14:11 → CATHEP 21:25
PROVIDERS: ATTEND Internal Medicine Clinical Cardiac Electrophysiology
DX: I42.8 Other cardiomyopathies (principal); I49.5 Sick sinus syndrome; I48.0 Paroxysmal atrial fibrillation; I47.1 Supraventricular tachycardia; I45.3 Trifascicular block; I10 Essential (primary) hypertension; E78.5 Hyperlipidemia, unspecified; N28.9 Disorder of kidney and ureter, unspecified; K21.9 Gastro-esophageal reflux disease without esophagitis; F17.210 Nicotine dependence, cigarettes, uncomplicated; Z20.822 Contact with and (suspected) exposure to COVID-19; Z79.899 Other long term (current) drug therapy; Z79.01 Long term (current) use of anticoagulants; Z79.82 Long term (current) use of aspirin; Z88.8 Allergy status to other drugs, medicaments and biological substances; Z88.1 Allergy status to other antibiotic agents; Z88.0 Allergy status to penicillin; Z91.013 Allergy to seafood; Z98.890 Other specified postprocedural states
CPT/HCPCS: 33225; 33229; 80048; 85025; 87635; 71045; C1769 ×4; C1892; C1730; C1887; C1900; C2621; J2250; J0690; J2001; J0461; J3010; J1580; J0878; J0330; J2704; Q9966

== ENCOUNTER → 2021-10-22 | Day surgery (SDC) | payer MEDICARE, OTHER ==
[~2021-10-22] MED LIST changes: +DAPTOmycin 500 MG in SODIUM CHLORIDE 0.9% 50 ML IVPB ONE; -DAPTOmycin 500 MG in SODIUM CHLORIDE 0.9% 50 ML IVPB PRN; -GENTAMICIN 120 MG in SODIUM CHLORIDE 0.9% 100 ML IVPB PRN; -LACTATED RINGERS 1,000 ML IV SCH; -LIDOCAINE 1% (10MG/ML) FOR IV START INTRADERMA PRN; +LIDOCAINE 1% INJ 10MG/ML (30 ML VIAL-PF) SQ ONE; -SODIUM CHLORIDE 0.9% 1,000 ML IV SCH; +SODIUM CHLORIDE 0.9% 500 ML 500 ML IV ONE; +SODIUM CHLORIDE 0.9% 500 ML 500 ML IV SCH
[2021-10-22 10:45] VITALS: RESP 16; TEMP 98.9
[2021-10-22 12:46] VITALS: BP 120/76; PULSE 77
--- NOTE | 2021-10-22 12:55 | P.PCN ---
Preoperative Diagnosis: Diagnosis Wound days since with a In the incision site and a localized small hematoma at either ends of the incision However no actual skin breakdown Procedure Patient was given IV antibiotics, daptomycin 500 mg On a full set of precautions of EP lab in the incision is made at either end of the pocket and the small incisional hematoma was drained Minimal blood loss However one could feel In the incision superficially Therefore nylon sutures were placed all along the incision The wound was closed Antibiotic pad applied Dressing applied Discharge home on oral antibiotics Plan reevaluate after one week in the EP lab in area
== END ==
LOC: CATHCVL 10:27 → EDSTATUS 11:07 → CATHCVL 13:03
PROVIDERS: ATTEND Internal Medicine Clinical Cardiac Electrophysiology
DX: T81.30XA Disruption of wound, unspecified, initial encounter (principal)
CPT/HCPCS: 12001; J2001; J0878

== ENCOUNTER → 2022-06-17 | Outpatient (CLI) | payer MEDICARE, OTHER ==
--- NOTE | 2022-06-17 17:15 | CT ---
EXAMINATION TYPE: CT angio head neck DATE OF EXAM: 06/17/2022 COMPARISON: HISTORY: recent vision changes x [address] DLP: 1426.10 mGycm Automated exposure control for dose reduction was used. CONTRAST: Performed without and with IV Contrast, patient injected with 65 mL of Isovue 370. Images obtained from the aortic arch through the vertex of the brain with IV contrast. Additional non contrast images of the brain were obtained. There is cerebral cortical atrophy. There is no mass effect or midline shift. No sign of intracranial hemorrhage. There is normal branching pattern of the great vessels on the aortic arch. There is arterial flow in both subclavian arteries. There is arterial flow in the common internal and external carotid arteries bilaterally. There is plaque formation at the carotid artery bifurcations with calcification. No fan dence of any hemodynamic stenosis. There is 25% stenosis of the proximal right internal carotid arter y. There is arterial flow in both vertebral arteries. There is arterial flow in the vertebrobasilar a rtery system. No evidence of carotid or vertebral artery aneurysm or dissection. There is arterial flow in the anterior middle and posterior cerebral arteries bilaterally. No mass ef fect. No evidence of intracranial aneurysm or neovascularity. No evidence of hemodynamic stenosis. Th ere is normal enhancement of the venous sinuses. There is no flow seen in the A1 segment of the left anterior cerebral artery and the distal left anterior cerebral artery is filled through the anterior communicating artery. IMPRESSION: Minimal plaque formation at the right carotid artery bifurcation with 25% stenosis in the proximal in ternal carotid artery. There is lack of filling of the A1 segment left anterior cerebral artery that could be developmental. Distal anterior cerebral arteries appear fairly normal. There is mild ethmoid and frontal sinusitis.
== END | disposition home or self-care (01) ==
LOC: RADCTMAIN 15:18
PROVIDERS: ATTEND Nurse Practitioner Adult Health
DX: J01.80 Other acute sinusitis (principal); N18.32 Chronic kidney disease, stage 3b; I65.21 Occlusion and stenosis of right carotid artery
CPT/HCPCS: 82565; 84520; 70496; 70498; 36415; Q9967

== ENCOUNTER → 2022-07-02 | Outpatient (CLI) | payer MEDICARE, OTHER ==
[2022-07-02 10:58] LABS: INR 1.2 (<1.2); Partial Thromboplastin Time 31.2 sec (22.0-30.0); Prothrombin Time 12.7 sec (9.0-12.0)
[2022-07-02 11:14] LABS: Appearance,Urine Clear (Clear); Bilirubin,Urine Negative (Negative); Blood,Urine Negative (Negative); Color,Urine Yellow; Glucose,Urine (UA) Negative (Negative); Ketones,Urine Negative (Negative); Leukocyte Esterase,Urine Negative (Negative); Nitrite,Urine Negative (Negative); Protein,Urine Trace (Negative); Specific Gravity,Urine 1.024 (1.001-1.035)
[2022-07-02 16:10] LABS: Basophils # (A) 0.05 X 10*3/uL (0.00-0.10); Basophils % (A) 0.8 %; Eosinophils # (A) 0.26 X 10*3/uL (0.04-0.35); Eosinophils % (A) 4.3 %; HCT 40.4 % (39.6-50.0); HGB 13.3 g/dL (13.0-17.0); Immature Grans, Automated 0.2 %; Lymphocytes # (A) 1.73 X 10*3/uL (0.90-5.00); Lymphocytes % (A) 28.9 %; MCH 33.2 pg (27.0-32.0); MCHC 32.9 g/dL (32.0-37.0); MCV 100.7 fL (80.0-97.0); Mean Platelet Volume 10.8 fL (9.5-12.2); Monocytes # (A) 0.78 X 10*3/uL (0.20-1.00); NRBC Per 100 WBC 0 /100 WBCS (0.0-0.0); Neutrophils # (A) 3.16 X 10*3/uL (1.80-7.70); Neutrophils % (A) 52.8 %; Platelet Count 257 X 10*3/uL (140-440); RBC 4.01 X 10*6/uL (4.40-5.60); RDW 12.4 % (11.5-14.5); WBC 5.99 X 10*3/uL (4.50-10.00)
[2022-07-02 16:25] LABS: African American GFR (CKD) 58.9 (60.0-200.0); Albumin 4.2 g/dL (3.8-4.9); Albumin/Globulin Ratio 1.4 (1.60-3.17); Anion Gap 8.9 mmol/L (10.00-18.00); BUN/Creat Ratio 14.62 Ratio (12.00-20.00); Calcium 9.5 mg/dL (8.7-10.3); Carbon Dioxide 31.1 mmol/L (20.0-27.5); Non-African American GFR(CKD) 50.8 (60.0-200.0); Potassium 4.1 mmol/L (3.5-5.5); Total Bilirubin 0.9 mg/dL (0.30-1.20); Total Protein 7.2 g/dL (6.2-8.2)
== END | disposition home or self-care (01) ==
LOC: LABWHC1 08:41
PROVIDERS: ATTEND Family Medicine
DX: K06.8 Other specified disorders of gingiva and edentulous alveolar ridge (principal)
CPT/HCPCS: 36415; 80053; 81003; 85025; 85610; 85730

== ENCOUNTER → 2023-05-16 | Outpatient (CLI) | payer MEDICARE, OTHER ==
[2023-05-16 15:09] LABS: African American GFR (CKD) 63 (>60 ml/min/1.73 sqM); Blood Urea Nitrogen 30 mg/dL (9-20); Non-African American GFR(CKD) 54 (>60 ml/min/1.73 sqM)
--- NOTE | 2023-05-19 10:49 | CT ---
EXAMINATION TYPE: CT iac w con CT DLP: 142.7 mGycm, Automated exposure control for dose reduction was used. 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 COMPARISON: On 623. TECHNIQUE: Multiple thin axial images were obtained through the temporal bones and internal auditory canals. Additional coronal reformatted images were obtained. No IV contrast was utilized. STENVER a nd POSCHL views were created on a separate work station. CT Contrast: Contrast used:80 cc mL of Isovue 300 with IV Contrast, none. FINDINGS: Right Temporal Bone: External Ear: The external auditory canal is unremarkable, The tympanic membrane is present and unrem arkable. Middle Ear: The ossicles demonstrate a normal appearance. Prussak's space is clear and the scutum i s intact. There is no evidence of osseous erosion and the tegmen tympani is intact. Inner Ear: Cochlea, vestibule and semi circular canals are unremarkable. No evidence of carotid zachary l dehiscence. Two and a half turns of the cochlea are identified. The vestibular aqueduct is not enl arged. Mastoid Air Cells: The mastoid air cells are clear. The tegmen mastoideum is intact. The aditus ad an trum is clear. Internal Auditory Canal: The internal auditory canal is unremarkable. Left Temporal Bone: External Ear: The external auditory canal is unremarkable, The tympanic membrane is present and unrem arkable. Middle Ear: The ossicles demonstrate a normal appearance. Prussak's space is clear and the scutum i s intact. There is no evidence of osseous erosion and the tegmen tympani is intact. Inner Ear: Cochlea, vestibule and semi circular canals are unremarkable. No evidence of carotid zachary l dehiscence. Two and a half turns of the cochlea are identified. The vestibular aqueduct is not enl arged. Mastoid Air Cells: The mastoid air cells are clear. The tegmen mastoideum is intact. The aditus ad an trum is clear. Internal Auditory Canal: The internal auditory canal is unremarkable. Bilaterally aphakia. Atherosclerosis of the carotid siphons bilaterally. The visualized intracranial vasculature is without evidence for occlusion or significant stenosis. There is a atrophic A1 segment of the left anterior cerebral artery. IMPRESSION: Normal internal auditory canal study.
== END | disposition home or self-care (01) ==
LOC: RADCTMAIN 14:28
PROVIDERS: ATTEND Otolaryngology
DX: H91.22 Sudden idiopathic hearing loss, left ear (principal)
CPT/HCPCS: 82565; 84520; 70481; 36415; Q9967